=== PATIENT | female | born 1960 | race Caucasian/White ===

== ENCOUNTER 2020-04-30 10:10 | Outpatient (CLI) | payer BC, SELFPAY ==
--- NOTE | ~2020-04-30 | MM_ITS ---
EXAMINATION: MM scrn kay implant BI w bertha HISTORY: Screening mammogram TECHNIQUE: Craniocaudal and mediolateral oblique 3-D tomosynthesis images with implant displacement a nd synthetic 2-D images were generated. Craniocaudal and mediolateral oblique views of the breasts wi thout implant displacement were obtained using full field digital mammography. CAD analysis was submi tted and interpreted. COMPARISON: Comparison to multiple prior studies sequentially, with oldest reviewed study dated 10/31. BREAST PARENCHYMAL COMPOSITION: There are scattered areas of fibroglandular density. FINDINGS: There is no evidence of suspicious mass, calcification, or architectural distortion to sugg est malignancy in either breast. There has been no suspicious interval change. IMPRESSION: 1. No mammographic evidence of malignancy. 2. Recommend routine screening mammography in one year. BI-RADS Category 1: Negative Reviewed, dictated and finalized at location A.
== END 2020-04-30 10:11 | disposition home or self-care (01) ==
LOC: ANHIMG 10:18
PROVIDERS: PCP Family Medicine
DX: Z12.31 Encounter for screening mammogram for malignant neoplasm of breast (principal)
CPT/HCPCS: 77063; 77067

== ENCOUNTER 2021-08-06 16:32 | Outpatient (CLI) | payer BC, SELFPAY ==
--- NOTE | ~2021-08-06 | MM_ITS ---
EXAMINATION: MM scrn kay implant BI w bertha HISTORY: Screening mammogram TECHNIQUE: Craniocaudal and mediolateral oblique 3-D tomosynthesis images with implant displacement a nd synthetic 2-D images were generated. Craniocaudal and mediolateral oblique views of the breasts wi thout implant displacement were obtained using full field digital mammography. CAD analysis was submi tted and interpreted. COMPARISON: 04/30/2020, 10/04/2018, 06/08/2017 bilateral digital screening mammogram examinations BREAST PARENCHYMAL COMPOSITION: There are scattered areas of fibroglandular density. FINDINGS: Status post bilateral augmentation mammoplasty. There is no evidence of suspicious mass, ca lcification, or architectural distortion to suggest malignancy in either breast. There has been no peng spicious interval change. IMPRESSION: 1. No mammographic evidence of malignancy. 2. Recommend routine screening mammography in one year. BI-RADS Category 1: Negative Reviewed, dictated and finalized at location A.
== END 2021-08-06 16:33 | disposition home or self-care (01) ==
PROVIDERS: PCP Family Medicine; Visit Provider Family Medicine
DX: Z12.31 Encounter for screening mammogram for malignant neoplasm of breast (principal)
CPT/HCPCS: 77063; 77067

== ENCOUNTER 2022-08-27 15:43 | Outpatient (CLI) | payer BC, SELFPAY ==
--- NOTE | ~2022-08-27 | MM_ITS ---
EXAMINATION: MM scrn kay implant BI w bertha HISTORY: Screening mammogram TECHNIQUE: Craniocaudal and mediolateral oblique 3-D tomosynthesis images with implant displacement a nd synthetic 2-D images were generated. Craniocaudal and mediolateral oblique views of the breasts wi thout implant displacement were obtained using full field digital mammography. CAD analysis was submi tted and interpreted. COMPARISON: 08/06/2021, 04/30/2020, 10/04/2018 bilateral implant screening mammogram examinations BREAST PARENCHYMAL COMPOSITION: There are scattered areas of fibroglandular density. FINDINGS: Status post bilateral augmentation mammoplasty There is no evidence of suspicious mass, emmanuelle cification, or architectural distortion to suggest malignancy in either breast. There has been no rivera picious interval change. IMPRESSION: 1. No mammographic evidence of malignancy. 2. Recommend routine screening mammography in one year. BI-RADS Category 1: Negative Reviewed, dictated and finalized at location A.
== END 2022-08-27 15:44 | disposition home or self-care (01) ==
PROVIDERS: PCP Family Medicine; Visit Provider Family Medicine
DX: Z12.31 Encounter for screening mammogram for malignant neoplasm of breast (principal)
CPT/HCPCS: 77063; 77067

== ENCOUNTER 2023-10-01 13:47 | Outpatient (CLI) | payer BC, SELFPAY ==
--- NOTE | ~2023-10-01 | MM_ITS ---
EXAMINATION: MM scrn kay implant BI w bertha HISTORY: Screening mammogram TECHNIQUE: Craniocaudal and mediolateral oblique 3-D tomosynthesis images with implant displacement a nd synthetic 2-D images were generated. Craniocaudal and mediolateral oblique views of the breasts wi thout implant displacement were obtained using full field digital mammography. CAD analysis was submi tted and interpreted. COMPARISON: 08/27/2022, 08/06/2021, 04/30/2020 BREAST PARENCHYMAL COMPOSITION: The breasts are almost entirely fatty. FINDINGS: There is no evidence of suspicious mass, calcification, or architectural distortion to sugg est malignancy in either breast. There has been no suspicious interval change. IMPRESSION: 1. No mammographic evidence of malignancy. 2. Recommend routine screening mammography in one year. BI-RADS Category 1: Negative Reviewed, dictated and finalized at location A.
== END 2023-10-01 13:48 | disposition home or self-care (01) ==
LOC: ANHIMG 13:54
PROVIDERS: PCP Internal Medicine; Visit Provider Internal Medicine
DX: Z12.31 Encounter for screening mammogram for malignant neoplasm of breast (principal)
CPT/HCPCS: 77063; 77067

== ENCOUNTER 2025-03-02 08:13 | Outpatient (CLI) | payer MEDICARE, SELFPAY ==
--- NOTE | ~2025-03-02 | MM_ITS ---
EXAMINATION: MM screening kay BI w bertha HISTORY: Screening TECHNIQUE: Craniocaudal and mediolateral oblique 3-D tomosynthesis images were obtained and synthetic 2-D images were generated. CAD analysis was submitted and interpreted. COMPARISON: Comparison to multiple prior studies sequentially, with oldest reviewed study dated 06/08. BREAST PARENCHYMAL COMPOSITION: Not Dense: The breasts are almost entirely fatty. FINDINGS: There is no evidence of suspicious mass, calcification, or architectural distortion to sugg est malignancy in either breast. There has been no suspicious interval change. IMPRESSION: 1. No mammographic evidence of malignancy. 2. Recommend routine screening mammography in one year. BI-RADS Category 1: Negative Reviewed, dictated and finalized at location A.
--- OUTSIDE RECORDS SUMMARY | 2025-03-02 08:25 | XMS_ITS | Encounter Summary ---
Author Organization [facility] Facility Care Team Providers Care Aquatic Laborer Name Role Phone Trevon Longoria MD Primary Care Provider [phone] Ruslan Armstrong Primary Care Provider [phone] Encounter Details Date Type Department Care Team (Latest Contact Info) Description 11/05/2018 Orders Only [facility] CLINCONV ProviderNorma MD [address] [place] [id number] Social History Tobacco Use Types Packs/Day Years Used Date Smoking Tobacco: Never Assessed Comments Unknown Sex and Gender Information Value Date Recorded Sex Assigned at Not on file 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 Historical Provider Final Res ult documented in this encounter Visit Diagnoses Not on filedocumented in this encounter Care Teams Aquatic Laborer Relationship Specialty Start Date End Date Trevon Longoria MD PCP - General Family Medicine 09/21/19 09/30/22 Ruslan Armstrong PA PCP - General Family Medicine 10/01/22 documented as of this encounter
--- OUTSIDE RECORDS SUMMARY | 2025-03-02 08:25 | XMS_ITS | Encounter Summary ---
Author Organization [facility] Facility Care Team Providers Care Certified Master Locksmith Name Role Phone Trevon Longoria MD Primary Care Provider [phone] Ruslan Armstrong Primary Care Provider [phone] Encounter Details Date Type Department Care Team (Latest Contact Info) Description 07/19/2016 Orders Only [facility] CLINCONV ProviderNorma MD [address] [place] [id number] Social History Tobacco Use Types Packs/Day Years Used Date Smoking Tobacco: Never Assessed Comments Unknown Sex and Gender Information Value Date Recorded Sex Assigned at Not on file 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 Historical Provider Final Res ult documented in this encounter Visit Diagnoses Not on filedocumented in this encounter Care Teams Certified Master Locksmith Relationship Specialty Start Date End Date Trevon Longoria MD PCP - General Family Medicine 09/21/19 09/30/22 Ruslan Armstrong PA PCP - General Family Medicine 10/01/22 documented as of this encounter
--- OUTSIDE RECORDS SUMMARY | 2025-03-02 08:25 | XMS_ITS | Encounter Summary ---
Author Organization [facility] Facility Care Team Providers Care Steward/Stewardess Third Class Name Role Phone Trevon Longoria MD Primary Care Provider [phone] Ruslan Armstrong Primary Care Provider [phone] Encounter Details Date Type Department Care Team (Latest Contact Info) Description 10/24/2018 Orders Only [facility] CLINCONV ProviderNorma MD [address] [place] [id number] Social History Tobacco Use Types Packs/Day Years Used Date Smoking Tobacco: Never Assessed Comments Unknown Sex and Gender Information Value Date Recorded Sex Assigned at Not on file 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 Historical Provider [facility] Final Result documented in this encounter Visit Diagnoses Not on filedocumented in this encounter Care Teams Steward/Stewardess Third Class Relationship Specialty Start Date End Date Trevon Longoria MD PCP - General Family Medicine 09/21/19 09/30/22 Ruslan Armstrong PA PCP - General Family Medicine 10/01/22 documented as of this encounter
--- OUTSIDE RECORDS SUMMARY | 2025-03-02 08:25 | XMS_ITS | Encounter Summary ---
Author Organization 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 Historical Provider Final Res ult documented in this encounter Visit Diagnoses Not on filedocumented in this encounter Care Teams Spark Tester Relationship Specialty Start Date End Date Trevon Longoria MD PCP - General Family Medicine 09/21/19 09/30/22 Ruslan Armstrong PA PCP - General Family Medicine 10/01/22 documented as of this encounter
--- OUTSIDE RECORDS SUMMARY | 2025-03-02 08:25 | XMS_ITS | CONTINUITY OF CARE DOCUMENT ---
Author Name ned, ned Address Unknown Organization [facility] Address [address] [place] [address] Phone [phone] Care Team Providers Care Operator Cavity Pump Name Role Phone Orlando CÁRDENAS, Tawanna Unavailable OPAL JEAN-BAPTISTE MD Unavailable [phone] OPAL JEAN-BAPTISTE MD Unavailable [phone] PROBLEMS Condition Status Date Provider Notes Hypercholesterolemia, mixed completed 2007 - Tawanna Perry MD PALPITATIONS-11/10 NUC ABN I NF WALL ISCH completed - Tawanna Perry MD CAD S/P BMSX 2 IN PROX TO [place] D RCA in 2012, nl stress test 11/2022 active Tawanna Perry MD DIABETES MELLITUS active Tawanna Perry MD Obesity active Tawanna Perry MD Rash/Hives episode - non-specific with diaphoresis completed - Tawanna Perry MD Hyperlipidemia active Tawanna Perry MD SVT active Tawanna Perry MD HTN--echo ef nl, 11/2022 active Manfred gonzales CHEST PAIN-TYPE TO BE DETERMINED completed - Tawanna Perry MD ENCOUNTERS Date Type Provider Location Encounter Diag nosis - In-person encounter Office Visit Tawanna Perry MD [facility] - In-person encounter Office Visit Tawanna Perry MD [facility] Hypercholesterolemia, mixedPALPITATIONS-11/10 NUC ABN INF WALL ISCHCAD S/P BMSX 2 IN PROX TO MID RCA in 2012, nl stress test 11/2022Rash/Hives episode - non-specific with diaphoresisHyperlipidemia - In-person encounter Office Visit Tawanna Perry MD [facility] HTN--echo ef nl, 11/2022 - In-person encounter Office Visit Tawanna Perry MD [facility] CAD S/P BMSX 2 IN PROX TO MID RCA in 2012, nl stress test 11/2022SVT - In-person encounter Office Visit Tawanna Perry MD [facility] - In-person encounter Office Visit Tawanna Perry MD [facility] - In-person encounter Office Visit Tawanna Perry MD [facility] HTN--echo ef nl, 11/2022 - In-person encounter Office Visit Tawanna Perry MD [facility] - In-person encounter Office Visit Tawanna Perry MD [facility] - In-person encounter Office Visit Tawanna Perry MD [facility] - In-person encounter Office Visit Tawanna Perry MD [facility] - In-person encounter Office Visit Tawanna Perry MD [facility] - In-person encounter Office Visit Dennis Contreras MD [facility] - In-person encounter Office Visit Tawanna Perry MD [facility] - In-person encounter Office Visit Tawanna Perry MD [facility] CAD S/P BMSX 2 IN PROX TO MID RCA in 2012, nl stress test 3DIABETES MELLITUS - In-person encounter Office Visit Tawanna Perry MD [facility] - In-person encounter Office Visit Tawanna Perry MD [facility] - In-person encounter Office Visit Tawanna Perry MD [facility] Obesity - In-person encounter Office Visit Tawanna Perry MD [facility] - In-person encounter Office Visit Tawanna Perry MD [facility] CAD S/P BMSX 2 IN PROX TO MID RCA in 2012, nl stress test IABETES MELLITUS - In-person encounter Office Visit Tawanna Perry MD [facility] - In-person encounter Office Visit Tawanna Perry MD [facility] - In-person encounter Office Visit Tawanna Perry MD [facility] - In-person encounter Office Visit Tawanna Perry MD [facility] - In-person encounter Office Visit Tawanna Perry MD [place] [facility] - In-person encounter Office Visit Tawanna Perry MD [place] [facility] - In-person encounter Office Visit Tawanna Perry MD [facility] CHEST PAIN-TYPE TO BE DETERMINEDHTN--echo ef nl, AD S/P BMSX 2 IN PROX TO MID RCA in 2012, nl stress test 11/2022 - In-person encounter Office Visit Tawanna Perry MD [facility] VITAL SIGNS Date Observation Value Provider Body Mass Index (Ratio) 25.73 kg/m2 Rod Perry MD blood pressure, diastolic 82 mm[Hg] Halle Matute blood pressure, systolic 122 mm[Hg] Cristina Matute oxygen saturation, oximetry 96 % Haritha Matute respiratory rate E&M 16 /min Haritha Matute pulse rate 77 /min Haritha Matute blood pressure, cuff size regular Li zbeth Matute weight E&M 147.6 [lb_av] Haritha Matute height E&M 63.5 [in_i] Haritha Matute Body Mass Index (Ratio) 25.98 kg/m2 Rod Perry MD blood pressure, diastolic 81 mm[Hg] Halle [employer] blood pressure, systolic 112 mm[Hg] Lyudmila [employer]Logic blood pressure, cuff size regular Ja rret blood pressure, diastolic 81 mm[Hg] Ja rret blood pressure, systolic 112 mm[Hg] Jar ret pulse rate 82 /min Yonas er y oxygen saturation, oximetry 97 % Yonas respiratory rate E&M 14 /min Yonas weight E&M 149 [lb_av] Yonas er y height E&M 63.5 [in_i] Yonas er y Body Mass Index (Ratio) 25.63 kg/m2 Rod Perry MD blood pressure, cuff size regular Ja rret blood pressure, diastolic 75 mm[Hg] Ja rret blood pressure, systolic 105 mm[Hg] Jar ret pulse rate 80 /min Yonas er y oxygen saturation, oximetry 97 % respiratory rate E&M 12 /min Yonas weight E&M 147 [lb_av] Yonas erda y height E&M 63.5 [in_i] Yonas er y Body Mass Index (Ratio) 26.15 kg/m2 Rod Perry MD blood pressure, diastolic 77 mm[Hg] Mi gerda Gupta blood pressure, systolic 97 mm[Hg] Osvaldo helle Gupta oxygen saturation, oximetry 99 % Maria Eugenia Gupta pulse rate 94 /min Maria Eugenia samuels weight E&M 150 [lb_av] Maria Eugenia samuels respiratory rate E&M 16 /min Kathy selene Gupta blood pressure, cuff size large Alyson lorenz Gupta height E&M 63.5 [in_i] Maria Eugenia samuels Body Mass Index (Ratio) 26.81 kg/m2 Rod Perry MD blood pressure, diastolic 85 mm[Hg] St acy Kaleb blood pressure, systolic 130 mm[Hg] Sta ajit Manuel oxygen saturation, oximetry 98 % Lizetajit Manuel pulse rate 88 /min Lizetajit Manuel respiratory rate E&M 16 /min Lizet D karina weight E&M 153.8 [lb_av] Lizet Kaleb height E&M 63.5 [in_i] Lizet Kaleb Body Mass Index (Ratio) 29.64 kg/m2 Rod Perry MD pulse rate 71 /min Maria Eugenia samuels oxygen saturation, oximetry 95 % Maria Euegnia Gupta respiratory rate E&M 16 /min Kathy morton Gupta blood pressure, cuff size large Alyson lorenz Gupta blood pressure, diastolic 72 mm[Hg] Mi gerda Gupta blood pressure, systolic 124 mm[Hg] [facility] helle Gupta weight E&M 170 [lb_av] Maria Eugenia samuels height E&M 63.5 [in_i] Maria Eugenia samuels Body Mass Index (Ratio) 29.64 kg/m2 Rod Perry MD blood pressure, diastolic 74 mm[Hg] Li nkLogic blood pressure, systolic 125 mm[Hg] Lyudmila kLogic blood pressure, diastolic 74 mm[Hg] Ca therine Gagan blood pressure, systolic 125 mm[Hg] Cat herine Gagan oxygen saturation, oximetry 98 % Marjorie Gagan respiratory rate E&M 16 /min Catheri ne Gagan pulse rate 71 /min Marjorie Meridian weight E&M 170 [lb_av] Marjorie Meridian blood pressure, cuff size large Ca therine Gagan height E&M 63.5 [in_i] Marjorie Gagan Body Mass Index (Ratio) 28.42 kg/m2 Rod Perry MD blood pressure, diastolic 70 mm[Hg] Natalio Moss blood pressure, systolic 124 mm[Hg] Celi Moss oxygen saturation, oximetry 96 % Vasquez Moss respiratory rate E&M 16 /min Heidy Moss pulse rate 70 /min Vasquez Wells borismalu weight E&M 163 [lb_av] Vasquez Wells [facility] height E&M 63.5 [in_i] Vasquez Wells malu Body Mass Index (Ratio) 27.55 kg/m2 Rod Perry MD blood pressure, diastolic 68 mm[Hg] Ajit Lin blood pressure, systolic 111 mm[Hg] Annie justice Lin respiratory rate E&M 16 /min Angelajustice Lin pulse rate 77 /min Angela Emmanuelbel l oxygen saturation, oximetry 96 % Angela Lin weight E&M 158 [lb_av] Angela Campbel l blood pressure, cuff size regular Cy ntkaren Lin height E&M 63.5 [in_i] Angela dominguez temperature site temporal Miriam Tank slechandra temperature E&M 97.5 [degF] Miriam Suzi tom Body Mass Index (Ratio) 30.68 kg/m2 Rod Perry MD blood pressure, diastolic 78 mm[Hg] Er ica Gay blood pressure, systolic 118 mm[Hg] Nelly brewster Gay oxygen saturation, oximetry 97 % Jeanine Gay pulse rate 75 /min Jeanine Herlinda Ward weight E&M 176 [lb_av] Jeanine Herlinda Ward height E&M 63.5 [in_i] Jeaninejohn Ward Body Mass Index (Ratio) 31.21 kg/m2 Rod Perry MD oxygen saturation, oximetry 95 % [facility], diastolic 64 mm[Hg] astity Landon blood pressure, systolic 116 mm[Hg] Yin stity Landon respiratory rate E&M 16 /min Chastit y Landon pulse rate 79 /min [facility] weight E&M 179 [lb_av] [facility] height E&M 63.5 [in_i] [facility] Body Mass Index (Ratio) 30.30 kg/m2 Alexander Contreras MD blood pressure, diastolic 90 mm[Hg] Natalio Moss blood pressure, systolic 144 mm[Hg] Celi Moss oxygen saturation, oximetry 98 % Vasquez Moss respiratory rate E&M 18 /min Heidy Moss pulse rate 77 /min Vasquez love weight E&M 173.8 [lb_av] Vasquez Piotr abhishek height E&M 63.5 [in_i] Vasquez Steve ivan Body Mass Index (Ratio) 31.38 kg/m2 Rod Perry MD blood pressure, cuff size regular rFida Saleh blood pressure, diastolic 80 mm[Hg] Frida Saleh blood pressure, systolic 110 mm[Hg] Gwyn manning Delfino oxygen saturation, oximetry 97 % Karlie Delfino respiratory rate E&M 16 /min Karlie Saleh pulse rate 93 /min Karlie Saleh weight E&M 180 [lb_av] Karlie Delfino height E&M 63.5 [in_i] Karlie Saleh blood pressure, diastolic 75 mm[Hg] Fl ameya Wilson blood pressure, systolic 109 mm[Hg] Rochelle hooper Wilson pulse rate 82 /min Sandra Wilson oxygen saturation, oximetry 96 % Sandra Wilson respiratory rate E&M 14 /min Sandra Wilson Body Mass Index (Ratio) 32.08 kg/m2 Josi callahan Wilson weight E&M 184 [lb_av] Sandra Wilson blood pressure, diastolic 76 mm[Hg] Natalio Moss blood pressure, systolic 111 mm[Hg] Celi Moss pulse rate 71 /min Vasquez love oxygen saturation, oximetry 95 % Vasquez Moss respiratory rate E&M 16 /min Heidy Moss Body Mass Index (Ratio) 32.57 kg/m2 Masha Moss weight E&M 186.8 [lb_av] Vasquez weiss blood pressure, diastolic 80 mm[Hg] Natalio Moss blood pressure, systolic 125 mm[Hg] Celi Moss pulse rate 73 /min Vasquez love oxygen saturation, oximetry 98 % Vasquez Moss respiratory rate E&M 18 /min Heidy Moss Body Mass Index (Ratio) 32.74 kg/m2 Masha Moss weight E&M 187.8 [lb_av] Vasquez weiss Body Mass Index (Ratio) 32.78 kg/m2 Anea catalina Brown blood pressure, diastolic 82 mm[Hg] An eatris Brown blood pressure, systolic 123 mm[Hg] Ane atris Brown pulse rate 74 /min Aneatris Brown oxygen saturation, oximetry 96 % Aneatris Brown respiratory rate E&M 17 /min Aneatri s Brown weight E&M 188 [lb_av] Aneatris Brown Body Mass Index (Ratio) 30.51 kg/m2 Anea catalina Declan blood pressure, diastolic 69 mm[Hg] An marizaris Declan blood pressure, systolic 95 mm[Hg] Ane atris Brown pulse rate 78 /min Aneatris Brown oxygen saturation, oximetry 98 % Aneatris Brown respiratory rate E&M 16 /min Aneatri s Brown weight E&M 175 [lb_av] Aneatris Declan blood pressure, diastolic 74 mm[Hg] Yordy Andrews RN blood pressure, systolic 121 mm[Hg] Michi Andrews RN pulse rate 79 /min Michi Andrews RN oxygen saturation, oximetry 99 % Michi Andrews RN respiratory rate E&M 16 /min Michi bellamy RN Body Mass Index (Ratio) 32.02 kg/m2 Michi Andrews RN weight E&M 183 [lb_av] Michi Andrews RN blood pressure, diastolic 69 mm[Hg] Yordy Andrews RN blood pressure, systolic 108 mm[Hg] Michi Andrews RN pulse rate 92 /min Michi Chencynthia ZUÑIGA oxygen saturation, oximetry 97 % Michi Chencynthia ZUÑIGA respiratory rate E&M 16 /min Michi bellamy RN Body Mass Index (Ratio) 31.50 kg/m2 Michi Chencynthia ZUÑIGA weight E&M 180 [lb_av] Michi Chencynthia ZUÑIGA Body Mass Index (Ratio) 32.37 kg/m2 Jensen i Amor blood pressure, diastolic 78 mm[Hg] Ke rri Amor blood pressure, systolic 113 mm[Hg] Maryanne Chinchilla pulse rate 90 /min Kelly Birch er oxygen saturation, oximetry 98 % Kelly Chinchilla respiratory rate E&M 16 /min Kelly childers weight E&M 185 [lb_av] Kelly Birch er height E&M 63.5 [in_i] Kelly Birch er blood pressure, diastolic 76 mm[Hg] Yordy charles Andrews RN blood pressure, systolic 115 mm[Hg] Michi Chencynthia ZUÑIGA pulse rate 80 /min Michi Chencynthia ZUÑIGA oxygen saturation, oximetry 97 % Michi Chencynthia ZUÑIGA respiratory rate E&M 18 /min Michi bellamy RN weight E&M 182 [lb_av] Michi Chencynthia ZUÑIGA blood pressure, diastolic 93 mm[Hg] Ma bryanna O'Evelio blood pressure, systolic 117 mm[Hg] Celi Villagomez'Evelio pulse rate 82 /min Kaylyn O'Evelio oxygen saturation, oximetry 94 % Kaylyn O'Evelio respiratory rate E&M 16 /min Kaylyn O'Evelio weight E&M 179 [lb_av] Kaylyn O'Evelio Body Mass Index (Ratio) 29.06 kg/m2 Rod Perry MD height E&M 65 [in_i] Tawanna Perry MD blood pressure, diastolic 77 mm[Hg] Enrrique garcia Carter blood pressure, systolic 107 mm[Hg] Haresh rosales Carter pulse rate 97 /min Sarahi Raul oxygen saturation, oximetry 96 % Sarahi Carter respiratory rate E&M 16 /min Tawanna Perry MD weight E&M 174 [lb_av] Sarahi Carter blood pressure, diastolic 84 mm[Hg] Jacklyn Mason MA blood pressure, systolic 140 mm[Hg] Traci Mason MA pulse rate 107 /min Sue Mason MA oxygen saturation, oximetry 98 % Sue Mason MA respiratory rate E&M 16 /min Sue Mason MA weight E&M 162 [lb_av] Sue Mason MA Body Mass Index (Ratio) 27.06 kg/m2 Rod Perry MD height E&M 65 [in_i] Tawanna Perry MD blood pressure, diastolic 84 mm[Hg] Jacklyn julianna Mason MA blood pressure, systolic 148 mm[Hg] Jacklynselene Mason MA pulse rate 98 /min Sue Mason MA oxygen saturation, oximetry 98 % Sue Mason MA respiratory rate E&M 16 /min Sue Mason MA weight E&M 162 [lb_av] Sue Mason MA blood pressure, diastolic 66 mm[Hg] Natalio Moss blood pressure, systolic 122 mm[Hg] Celi Moss pulse rate 107 /min Vasquez love oxygen saturation, oximetry 98 % Vasquez Moss respiratory rate E&M 16 /min Heidy Moss weight E&M 162 [lb_av] Vasquez love RESULTS Date Observation Value Provider Reference Range Interpretation Location hematocrit, blood 43.7 % [facility] hemoglobin, blood 14.1 g/dL [facility] triglyceride, serum, fasting 173 mg/dL [facility] HDL cholesterol, serum 42 mg/dL [facility] cholesterol, serum 154 mg/dL [facility] creatinine, serum 0.45 mg/dL [facility] platelet count 279 10*3/mm3 [facility] hematocrit, blood 42.1 % [facility] triglyceride, serum, fasting 65 mg/dL [facility] HDL cholesterol, serum 54 mg/dL [facility] lipoprotein, beta, serum, point, quantitative, calculated 84 mg/dL [facility] cholesterol, serum 151 mg/dL [facility] alanine aminotransferase (SGPT), serum 30 1/L [facility] aspartate aminotransferase (SGOT), serum 17 1/L [facility] blood glucose, random 112 mg/dL [facility] creatinine, serum 0.84 mg/dL [facility] urea nitrogen, blood 20 mg/dL [facility] potassium, serum 4.6 mmol/L [facility] sodium, serum 146 mmol/L [facility] platelet count 216 10*3/mm3 [facility] hematocrit, blood 38.5 % [facility] blood glucose, random 115 mg/dL [facility] creatinine, serum 0.64 mg/dL [facility] urea nitrogen, blood 18 mg/dL [facility] potassium, serum 3.8 mmol/L [facility] sodium, serum 141 mmol/L [facility] thyroid stimulating hormone, serum 2.120 u[IU]/mL [facility] LDL cholesterol, serum 81 mg/dL [facility] cholesterol, serum 152 mg/dL [facility] potassium, serum 4.5 mmol/L [facility] sodium, serum 144 mmol/L [facility] creatinine, serum 0.98 mg/dL [facility] platelet count 288 10*3/uL [facility] hematocrit, blood 44.1 % [facility] platelet count 303 10*3/mm3 [facility] hematocrit, blood 42.8 % [facility] lipoprotein, beta, serum, point, quantitative, calculated 86 mg/dL [facility] cholesterol, serum 160 mg/dL [facility] alanine aminotransferase (SGPT), serum 30 1/L [facility] aspartate aminotransferase (SGOT), serum 30 1/L [facility] creatinine, serum 0.91 mg/dL [facility] potassium, serum 5.0 mmol/L [facility] sodium, serum 142 mmol/L [facility] triglyceride, serum, fasting 95 mg/dL [facility] HDL cholesterol, serum 60 mg/dL [facility] LDL cholesterol, serum 123 mg/dL [facility] cholesterol, serum 202 mg/dL [facility] thyroid stimulating hormone, serum 2.07 u[IU]/mL [facility] anion gap, serum 8.7 [facility] globulins, serum, total 3.5 g/dL [facility] estimated glomerular filtration rate >60 [facility] albumin/globulin ratio, serum 1.3 [facility] protein, total, serum 8.2 g/dL [facility] albumin, serum 4.7 g/dL [facility] bilirubin, serum, total 0.72 mg/dL [facility] alkaline phosphatase, serum 124 1/L [facility] alanine aminotransferase (SGPT), serum 36 1/L [facility] aspartate aminotransferase (SGOT), serum 15 1/L [facility] calcium, serum 9.7 mg/dL [facility] blood glucose, fasting 107 mg/dL [facility] creatinine, serum 0.91 mg/dL [facility] urea nitrogen, blood 18.7 mg/dL [facility] carbon dioxide, serum, total 33 mmol/L [facility] chloride, serum 99 mmol/L [facility] potassium, serum 4.7 mmol/L [facility] sodium, serum 136 mmol/L [facility] platelet count 335 10*3/uL [facility] red blood cell distribution width 12.6 % [facility] mean corpuscular hemoglobin concentration, RBC 32.5 g/dL [facility] mean corpuscular hemoglobin, RBC 29.9 pg [facility] mean corpuscular volume, RBC 92.1 fL [facility] hematocrit, blood 44.3 % [facility] hemoglobin, blood 14.4 g/dL [facility] erythrocyte (RBC) count 4.81 10*6/mm3 [facility] leukocyte count, blood 7.6 10*3/mm3 [facility] thyroid stimulating hormone, serum 1.36 u[IU]/mL [facility] Normal alanine aminotransferase (SGPT), serum 11 1/L [facility] 6-40 Normal aspartate aminotransferase (SGOT), serum 16 1/L [facility] 10-35 Normal alkaline phosphatase, serum 51 1/L [facility] 33-130 Normal bilirubin, serum, total 0.3 mg/dL [facility] 0.2-1.2 Normal albumin/globulin ratio, serum 1.4 (calc) [facility] 1.0-2.1 Normal globulins, serum, total 3.0 G/DL (CALC) [facility] 2.2-3.9 Normal albumin, serum 4.1 g/dL [facility] 3.6-5.1 Normal protein, total, serum 7.1 g/dL [facility] 6.2-8.3 Normal calcium, serum 9.0 mg/dL [facility] 8.6-10.2 Normal carbon dioxide, venous blood 21 mmol/L [facility] 21-33 Normal chloride, serum 106 mmol/L [facility] 98-110 Normal potassium, serum 4.4 mmol/L [facility] 3.5-5.3 Normal sodium, serum 140 mmol/L [facility] 135-146 Normal urea nitrogen/creatinine ratio, serum NOT APPLICABLE (calc) [facility] 6-22 Estimated Glomerular Filtration Rate (calc) >60 mL/min/1.73m2 [facility] > OR = 60 Normal creatinine, serum 0.91 mg/dL [facility] 0.60-1.10 Normal urea nitrogen, blood 17 mg/dL [facility] 7-25 Normal blood glucose, random 107 mg/dL [facility] 65-99 High prothrombin time (patient) 9.3 s [facility] international normalized ratio (INR) 0.9 [facility] creatinine, serum 1.0 mg/dL [facility] urea nitrogen, blood 11 mg/dL [facility] potassium, serum 4.0 mmol/L [facility] sodium, serum 140 mmol/L [facility] platelet count 385 10*3/uL [facility] hematocrit, blood 36.3 % [facility] hemoglobin, blood 11.9 g/dL [facility] erythrocyte (RBC) count 4.32 10*6/mm3 Masha Peterson leukocyte count, blood 8.5 10*3/mm3 Masha Peterson RN prothrombin time (patient) 9.3 s [facility] international normalized ratio (INR) 0.9 [facility] creatinine, serum 1.0 mg/dL [facility] urea nitrogen, blood 11 mg/dL [facility] potassium, serum 4.0 mmol/L [facility] sodium, serum 140 mmol/L [facility] platelet count 385 10*3/uL [facility] hematocrit, blood 36.3 % [facility] hemoglobin, blood 11.9 g/dL [facility] erythrocyte (RBC) count 4.32 10*6/mm3 [facility] leukocyte count, blood 8.5 10*3/mm3 [facility] HISTORY OF MEDICATION USE Medication Status Instructions Dates Provider Indications Com ments Ozempic 2 mg/dose (8 mg/3 mL) pen injector active Tawanna Perry MD Mounjacassy 5 mg/0.5 mL pen injector completed - Tawanna Perry MD metoprolol succinate 100 mg tablet extended release 24 hr active TAKE 1 TABLET BY MOUTH EVERY DAY Minnie Gunter rosuvastatin 20 mg tablet active Take 1 tablet by mouth once a day TAKE 1 TABLET BY MOUTH EVERY DAY Allyson Barry Jardiance 10 mg tablet active TAKE 1 TABLET BY MOUTH EVERY DAY Kelly Chinchilla rosuvastatin 20 mg tablet completed TAKE 1 TABLET BY MOUTH EVERY DAY - Roger Cifuentes Nitrostat 0.4 mg tablet, sublingual active apply one tab under tongue every 5 minutes for 3 total doses as needed for chest pain. If no relief after 3rd dose, go to ER Dylan Hall Jardiance 10 mg tablet completed One tab by mouth daily. - Manfred Tao Xanax 0.25 mg tablet active 1 tablet by mouth once a day as needed Vasquez Moss omeprazole 40 mg capsule,delayed release(DR/EC) active once a day Vasquez Moss aspirin 325 mg tablet active 1 tablet by mouth once a day Vasquez Moss YOSPRALA 325-40 MG ORAL TABLET DELAYED RELEASE completed po daily - Vasquez Moss rosuvastatin 20 mg tablet completed take one tab daily - Bailey Kvng ISOSORBIDE MONONIT ER 30 MG TB completed TAKE 1 TABLET BY MOUTH EVERY DAY - Ramirezelian Rafael metformin 500 mg tablet active 1 tablet by mouth twice a day Maria Eugenia Gupta SIMVASTATIN 20 MG ORAL TABLET completed ONE TAB. DAILY - Tawanna Perry MD NAPROXEN SODIUM CAPSULE completed as needed - VasquezLissette Moss CONTRAVE 8-90 MG ORAL TABLET EXTENDED RELEASE 12 HOUR completed 2 po bid - Vasquez Moss ASPIRIN 325 MG ORAL TABLET completed ONE TAB. DAILY - Tawanna Perry MD PLAVIX 75 MG ORAL TABLET completed ONE TAB. DAILY - Judi Manriquez SIMCOR 500-20 MG ORAL TABLET EXTENDED RELEASE 24 HOUR completed ONE TAB. DAILY - Dispense as written - Tawanna Perry MD losartan 25 mg tablet active Take 1 tablet by mouth once a day Manfred Tao PRILOSEC 20 MG ORAL CAPSULE DELAYED RELEASE completed ONE TAB. DAILY (use OTC) - Tawanna Perry MD LISINOPRIL 10 MG ORAL TABLET completed 1 tablet by mouth daily - Tawanna Perry MD metoprolol succinate 100 mg tablet extended release 24 hr completed Take 1 tablet by mouth once a day - Minnie Gunter IMDUR 30 MG ORAL TABLET EXTENDED RELEASE 24 HOUR completed ONE TAB. DAILY - Tawanna Perry MD ASPIRIN 325 MG ORAL TABLET completed one tab daily - Tawanna Perry MD ZOCOR 20 MG ORAL TABLET completed ONE TAB. AT BEDTIME - Masha Peterson RN CONTROL completed daily - Grayson Null MULTIVITAMINS ORAL CAPSULE completed ONE TAB. DAILY - Vasquez Moss ASPIRIN 81 MG ORAL TABLET completed ONE TAB. DAILY - Masha Peterson RN PRILOSEC OTC 20 MG ORAL TABLET DELAYED RELEASE completed take one tablet daily as directed - Masha Peterson RN ACEON TABS completed 20 mg daily - Grayson Null SOCIAL HISTORY Date Observation Value Provider drug use no Haritha Matute alcohol use no Haritha Matute passive cigarette sm luna exposure yes Haritha Matute smoking status Former smoker Haritha Matute social history reviewed E&M revi ewed - no changes required Manfred Tao social history E&M Lives alone E thnicity: M arital Status: Single Smoking History: P atient is a former smoker. Manfred Tao physical exercise, f requency, days per week yes Maria Eugenia Gupta caffeine use, averag e drinks per day yes Maria Eugenia Gupta passive cigarette sm luna exposure yes Maria Eugenia Gupta smoking status Former smoker Maria Eugenia grande social history reviewed E&M revi ewed - no changes required Manfred Tao social history E&M Lives alone E thnicity: M arital Status: Single Smoking History: P atient is a former smoker. Manfred Tao physical exercise, f requency, days per week yes Lizet Manuel caffeine use, averag e drinks per day yes Lizet Manuel passive cigarette sm luna exposure yes Lizet Manuel smoking status Former smoker Lizet Manuel social history reviewed E&M revi ewed - no changes required Manfred Ramoszaberny physical exercise, f requency, days per week yes Maria Eugenia Gupta caffeine use, averag e drinks per day yes Maria Eugenia Gupta passive cigarette sm luna exposure yes Maria Eugenia Gupta smoking status Former smoker Maria Eugenia grande social history reviewed E&M revi ewed - no changes required Manfred Ahmedzai physical exercise, f requency, days per week yes Marjorie Gagan caffeine use, averag e drinks per day yes Marjorie Gagan passive cigarette sm luna exposure yes Marjorie Gagan smoking status Former smoker Marjorie Ot is social history reviewed E&M revi ewed - no changes required Manfred Tao alcohol use no Tawanna Perry MD social history E&M Lives alone E thnicity: M arital Status: Single Smoking History: P atlos is a former smoker. Tawanna Perry MD social history reviewed E&M revi ewed - no changes required Tawanna Perry MD physical exercise, f requency, days per week yes Vasquez Moss caffeine use, averag e drinks per day yes Vasquez Moss passive cigarette sm luna exposure yes Vasquez Moss smoking status Former smoker Vasquez Arias social history reviewed E&M revi ewed - no changes required Tawanna Perry MD social history E&M Lives alone E thnicity: M arital Status: Single Smoking History: P atient is a former smoker. Dylan Hall social history reviewed E&M revi ewed - no changes required Dylan Hall physical exercise, f requency, days per week yes Angela Lin caffeine use, averag e drinks per day yes Angela Riley passive cigarette sm luna exposure yes Angela Riley smoking status Former smoker Angela Benitez cruz social history E&M Lives alone E thnicity: M arital Status: Single Smoking History: Won mehta is a former smoker. Tawanna Perry MD physical exercise, f requency, days per week yes Jeanine Green-Ed alcohol use, average drinks per day social basis only Jeanine Green-Ed alcohol use no Jeanine Green- Ed caffeine use, averag e drinks per day yes Jeanine Green-Ed drug use no Jeanine Green- Ed passive cigarette sm luna exposure yes Jeanine Green-Ed smoking status Former smoker Jeanine Wu on-Ed social history reviewed E&M revi ewed - no changes required Jeanine Green-Ed number of grandchildren Tawanna Perry MD T dayan Perry MD social history E&M Lives alone E thnicity: M arital Status: Single Smoking History: Won mehta is a former smoker. Tawanna Perry MD social history reviewed E&M revi ewed - no changes required Tawanna Perry MD physical exercise, f requency, days per week yes Genevieve Landon alcohol use, average drinks per day social basis only Chastity Landon alcohol use no Chastity Landon caffeine use, averag e drinks per day yes Chastity Landon drug use no Chastity Landon passive cigarette sm luna exposure yes Chastity Landon smoking status Former smoker Chastity Hog ue number of grandchildren Dennis Contreras MD U john Contreras MD social history reviewed E&M revi ewed - no changes required Dennis Contreras MD physical exercise, f requency, days per week yes Vasquez Moss alcohol use, average drinks per day social basis only Vasquez Moss alcohol use no Vasquez Wells borismalu caffeine use, averag e drinks per day yes Vasquez Moss drug use no Vasquez Wells ivan passive cigarette sm luna exposure yes Vasquez Moss smoking status Former smoker Vasquez Arias social history reviewed E&M revi ewed - no changes required Tawanna Perry MD physical exercise, f requency, days per week yes Karlie Saleh alcohol use, average drinks per day social basis only Karlie Saleh alcohol use no Karlie Saleh caffeine use, averag e drinks per day yes Karlie Saleh drug use no Karlie Saleh passive cigarette sm luna exposure yes Karlie Delfino smoking status Former smoker Karlie Saleh social history reviewed E&M revi ewed - no changes required Sandra Katie physical exercise, f requency, days per week yes Sandra Katie alcohol use, average drinks per day social basis only Sandar Katie alcohol use no Sandra Katie caffeine use, averag e drinks per day yes Sandra Katie drug use no Sandra Wilson passive cigarette sm luna exposure yes Sandra Katie smoking status Former smoker Sandra Barry solitario social history reviewed E&M revi ewed - no changes required Tawanna Perry MD physical exercise, f requency, days per week yes Vasquez Moss alcohol use, average drinks per day social basis only Vasquez Moss alcohol use no Vasquez Wells ivan caffeine use, averag e drinks per day yes Vasquezmelvin Moss drug use no Vasquez Wells ivan passive cigarette sm luna exposure yes Vasquez Moss smoking status Former smoker Vasquez Arias social history reviewed E&M revi ewed - no changes required Tawanna Perry MD physical exercise, f requency, days per week yes Vasquez Moss alcohol use, average drinks per day social basis only Vasquez Moss alcohol use no Vasquez Wells borismalu caffeine use, averag e drinks per day yes Vasquez Moss drug use no Vasquez Wells nson passive cigarette sm luna exposure yes Vasquez Moss smoking status Former smoker Vasquez Arias social history reviewed E&M revi ewed - no changes required Judi Manriquez smoking status Former smoker Judi gao social history reviewed E&M i ewed - no changes required Tawanna Perry MD smoking/tobacco cess ation, patient education and counseling yes Morelia Gupta smoking status Former smoker Morelia Gupta social history reviewed E&M reviewed Michi Andrews RN drug use no Michi Andrews RN social history reviewed E&M reviewed Michi Andrews RN social history reviewed E&M reviewed Tawanna Perry MD drug use none Tawanna Perry MD passive cigarette sm luna exposure yes Kelly Chinchilla smoking history, tot al pack/year 8 Kelly Chinchilla smoking status never smoker Kelly banegas social history reviewed E&M reviewed Michi Andrews RN social history reviewed E&M reviewed Michi Andrews RN social history reviewed E&M reviewed Tawanna Perry MD social history E&M L lamine alone E thnicity: M arital Status: Single Sue Mason MA social history reviewed E&M reviewed Sue Mason MA social history E&M Marital Status: Single Tawanna Perry MD social history reviewed E&M reviewed Tawanna Perry MD drug use none Tawanna Perry MD social history reviewed E&M reviewed Tawanna Perry MD physical exercise, f requency, days per week yes [employer] caffeine use, averag e drinks per day yes [employer] alcohol use, average drinks per day social basis only [employer] smoking status Non-smoker [employer] FUNCTIONAL STATUS Date Observation Value Provider HRA, CV Assess/Plan, Angina (inactive) Management Plan continue current therapy Tawanna Perry MD HRA, CV Assess/Plan, Angina (inactive) Management Plan continue current therapy Manfred Ahmedzaberny HRA, CV Assess/Plan, Angina (inactive) Management Plan continue current therapy Manfred Ahmedzaberny HRA, CV Assess/Plan, Angina (inactive) Management Plan continue current therapy Manfred Ahmedzai HRA, CV Assess/Plan, Angina (inactive) Management Plan continue current therapy Manfred Ahmedzai HRA, CV Assess/Plan, Angina (inactive) Management Plan continue current therapy Manfred Ahmedzai HRA, CV Assess/Plan, Angina (inactive) Management Plan continue current therapy Tawanna Perry MD HRA, CV Assess/Plan, Angina (inactive) Management Plan continue current therapy Dylan Hall HRA, CV Assess/Plan, Angina (inactive) Management Plan continue current therapy Tawanna Perry MD HRA, CV Assess/Plan, Angina (inactive) Management Plan continue current therapy Dennis Contreras MD HRA, CV Assess/Plan, Angina (inactive) Management Plan continue current therapy Tawanna Perry MD HRA, CV Assess/Plan, Angina (inactive) Management Plan continue current therapy Tawanna Perry MD HRA, CV Assess/Plan, Angina (inactive) Management Plan continue current therapy Tawanna Perry MD MENTAL STATUS Date Observation Value Provider assessment of judgme nt and insight E&M Alert and oriented to time, place and person. Mood and affect are normal. Tawanna Perry MD assessment of judgme nt and insight E&M Alert and oriented to time, place and person. Mood and affect are normal. Michi Andrews RN assessment of judgme nt and insight E&M Alert and oriented to time, place and person. Mood and affect are normal. Tawanna Perry MD assessment of judgme nt and insight E&M Alert and oriented to time, place and person. Mood and affect are normal. Michi Andrews RN assessment of judgme nt and insight E&M Alert and oriented to time, place and person. Mood and affect are normal. Michi Andrews RN assessment of judgme nt and insight E&M Alert and oriented to time, place and person. Mood and affect are normal. Tawanna Perry MD assessment of judgme nt and insight E&M Alert and oriented to time, place and person. Mood and affect are normal. Sue Mason MA assessment of judgme nt and insight E&M Alert and oriented to time, place and person. Mood and affect are normal. Tawanna Perry MD assessment of judgme nt and insight E&M Alert and oriented to time, place and person. Mood and affect are normal. Tawanna Perry MD FAMILY HISTORY Family Member Condition Father Family History of Corina ng Cancer: Mother Family History of Co ronary Artery Disease: INSURANCE PROVIDERS Payer name Policy type / Coverage type Camryn red democrat ID A[employer] [facility] ADVANTAGE PLAN 2 (HMO-POS) Medicare [id number] ADVANCE DIRECTIVES Name Date DISCUSSED - NO DECISION MADE TREATMENT PLAN Date Name Performer [id number],Manfred Pierre i [id number],SManfred i [id number],SManfred i [id number],SManfred i [id number],S, Manfred Ahmedza i [id number],S, Manfred Ahmedza i [id number],S, Manfred Ahmedza i [id number],S, Manfred Ahmedza i [id number],S, Manfred Ahmedza i [id number],S, Manfred Ahmedza i [id number],S, Manfred Ahmedza i [id number],S, Manfred Ahmedza i [id number],S, Manfred Ahmedza i [id number],S, Manfred Ahmedza i [id number],S, Manfred Ahmedza i [id number],S, Manfred Ahmedza i [id number],S, Manfred Ahmedza i [id number],S, Manfred Ahmedza i [id number],S, Manfred Ahmedza i [id number],B, Manfred Ahmedza i [id number],S, Manfred Ahmedza i [id number],S, Manfred Ahmedza i [id number],S, Manfred Ahmedza i [id number],S, Tawanna Perry MD [id number],S, Tawanna Perry MD [id number],S, Tawanna Perry MD [id number],S, Tawanna Perry MD [id number],S, Tawanna Perry MD Cardiology:LDL 37 2023 H er updated medication list for this problem includes: Rosuvastatin 20 Mg Tablet (Rosuvastatin) ..... Take 1 tablet by mouth once a day take 1 tablet by mouth every day Tawanna Perry MD Cardiology Tawanna Perry MD Cardiology Tawanna Perry MD Cardiology:Aic 5.9 Tawanna Perry MD Cardiology:This visi t has been a part of the consistent, comprehensive, and ongoing management of the chronic medical condition(s) listed above for the patient. Her updated medication list for this problem includes: Metoprolol Succinate 100 Mg Tablet Extended Release 24 Hr (Metoprolol succinate) ..... Take 1 tablet by mouth every day Nitrostat 0.4 Mg Tablet, Sublingual (Nitroglycerin) ..... Apply one tab under tongue every 5 minutes for 3 total doses as needed for chest pain. if no relief after 3rd dose, go to er Aspirin 325 Mg Tablet (Aspirin) ..... 1 tablet by mouth once a day Tawanna Perry MD Cardiology Tawanna Perry MD Cardiology: H er updated medication list for this problem includes: Metoprolol Succinate 100 Mg Tablet Extended Release 24 Hr (Metoprolol succinate) ..... Take 1 tablet by mouth every day Nitrostat 0.4 Mg Tablet, Sublingual (Nitroglycerin) ..... Apply one tab under tongue every 5 minutes for 3 total doses as needed for chest pain. if no relief after 3rd dose, go to er Aspirin 325 Mg Tablet (Aspirin) ..... 1 tablet by mouth once a day Tawanna Perry MD Cardiology: H er updated medication list for this problem includes: Metoprolol Succinate 100 Mg Tablet Extended Release 24 Hr (Metoprolol succinate) ..... Take 1 tablet by mouth every day Losartan 25 Mg Tablet (Losartan) ..... Take 1 tablet by mouth once a day Aspirin 325 Mg Tablet (Aspirin) ..... 1 tablet by mouth once a day Tawanna Perry MD Cardiology: H er updated medication list for this problem includes: Mounjaro 5 Mg/0.5 Ml Pen Injector (Tirzepatide) Jardiance 10 Mg Tablet (Empagliflozin) ..... Take 1 tablet by mouth every day Losartan 25 Mg Tablet (Losartan) ..... Take 1 tablet by mouth once a day Metformin 500 Mg Tablet (Metformin) ..... 1 tablet by mouth twice a day Aspirin 325 Mg Tablet (Aspirin) ..... 1 tablet by mouth once a day Tawanna Perry MD Cardiology: H er updated medication list for this problem includes: Metoprolol Succinate 100 Mg Tablet Extended Release 24 Hr (Metoprolol succinate) ..... Take 1 tablet by mouth every day Nitrostat 0.4 Mg Tablet, Sublingual (Nitroglycerin) ..... Apply one tab under tongue every 5 minutes for 3 total doses as needed for chest pain. if no relief after 3rd dose, go to er Aspirin 325 Mg Tablet (Aspirin) ..... 1 tablet by mouth once a day Nuclear Stress Findings: 1. Normal Liam protocol exercise tolerance test. 2 . Normal left ventricular size and function with a calculated ejection fraction of (QGS) 67%. 3 . Abnormal myocardial scintigraphy is suggestive for medium size area of slight distal inferior wall ischemia. 4 . Significant breast attenuation artifact reduces the accuracy of the result. - GC (11/09/2013) C ardiac Cath: Moderate CAD involving the RCA. Mild CAD involving the left system. Normal LV systolic function. (10/12/2008) C ardiac Cath Comments: The patient needs aggressive risk factor modification and Nitrates for her spasm. (10/12/2008) C arotid Doppler/Duplex: LESS THAN 50 % STENOSIS OF THE INTERNAL CAROTID A RTERIES BILATERALLY. SLHV (11/02/2008) C HOL: 154 (03/26/2017) LDL: 84 (07/14/2014) HDL: 42 (03/26/2017) T (03/26/2017) H gb: 14.1 (03/26/2017) HCT: 43.7 (03/26/2017) Platelets: 279 (07/14/2014) R BC: 4.81 (11/17/2011) WBC: 7.6 (11/17/2011) B UN: 20 (07/14/2014) Creat: .45 (03/26/2017) Glucose: 112 (07/14/2014) N a+: 146 (07/14/2014) K+: 4.6 (07/14/2014) Cl: 99 (11/17/2011) PT: 9.3 (10/11/2008) INR: 0.9 (10/11/2008) T SH: 2.120 (11/04/2013) Tawnana Perry MD Cardiology Manfred Ahmedzai Cardiology Manfred Ahmedzai Cardiology Manfred Ahmedzai Cardiology Manfred Ahmedzai Cardiology Manfred Ahmedzai Cardiology Manfred Ahmedzai Cardiology Manfred Ahmedzai Cardiology Manfred Ahmedzai Cardiology Manfred Ahmedzai Cardiology Manfred Ahmedzai Cardiology Manfred Ahmedzai Cardiology Manfred Ahmedzai Cardiology Manfred Ahmedzai Cardiology Manfred Ahmedzai Cardiology Manfred Ahmedzai Cardiology Manfred Ahmedzai Cardiology Manfred Ahmedzai Cardiology Manfred Ahmedzai Cardiology Manfred Ahmedzai Cardiology Manfred Ahmedzai Cardiology Manfred Ahmedzai Cardiology Manfred Ahmedzai Cardiology Manfred Ahmedzai Cardiology Tawanna Perry MD Cardiology Tawanna Perry MD Cardiology Tawanna Perry MD Cardiology Tawanna Perry MD Cardiology Tawanna Perry MD TeleHealth f/up May 27 at 9 am in GC office Tawanna Perry MD TeleHealth f/up May 27 at 9 am in GC office Tawanna Perry MD TeleHealth f/up May 27 at 9 am in GC office Tawanna Perry MD TeleHealth f/up May 27 at 9 am in GC office Tawanna Perry MD Cardiology Tawanna Perry MD Cardiology Tawanna Perry MD Cardiology Tawanna Perry MD Cardiology Tawanna Perry MD Cardiology Tawanna Perry MD Cardiology Tawanna Perry MD Cardiology Tawanna Perry MD Cardiology Tawanna Perry MD Cardiology Tawanna Perry MD Cardiology Tawanna Perry MD Cardiology Tawanna Perry MD Cardiology Tawanna Perry MD Cardiology Tawanna Perry MD Cardiology Tawanna Perry MD Cardiology:No chest pains. S table. Dennis Contreras MD Cardiology:She belie ves her BP being high is unusual and will track. B P today: 144/90 P rior BP: 110/80 (03/29/2017) Labs Reviewed: C reat: .45 (03/26/2017) C hol: 154 (03/26/2017) HDL: 42 (03/26/2017) T (03/26/2017) Dennis Contreras MD Cardiology:No palpitations per p atient. Dennis Contreras MD Cardiology:Well controlled per p atient. Last A1c 6.7%. Dennis Contreras MD Cardiology Follow up Tawanna lu MD Cardiology Follow up Tawanna ul MD Cardiology Follow up Tawanna lu MD Cardiology Follow up Tawanna lu MD Cardiology Tawanna Perry MD Cardiology Tawanna Perry MD Cardiology Tawanna Perry MD Cardiology Tawanna Perry MD Cardiology Tawanna Perry MD Cardiology Tawanna Perry MD Cardiology Tawanna Perry MD Cardiology Tawanna Perry MD Cardiology Tawanna Perry MD Cardiology Tawanna Perry MD Cardiology Tawanna Perry MD Cardiology Tawanna Perry MD Cardiology Tawanna Perry MD follow up: H er updated medication list for this problem includes: Simcor 500-20 Mg Tb24 (Niacin-simvastatin) ..... One tab. daily - dispense as written Tawanna Perry MD follow up: H er updated medication list for this problem includes: Aspirin 325 Mg Tabs (Aspirin) ..... One tab. daily Losartan Potassium 50 Mg Tabs (Losartan potassium) ..... Po daily Tawanna Perry MD follow up: T he following medications were removed from the medication list: Plavix 75 Mg Tabs (Clopidogrel bisulfate) ..... One tab. daily Her updated medication list for this problem includes: Aspirin 325 Mg Tabs (Aspirin) ..... One tab. daily Imdur 30 Mg Tb24 (Isosorbide mononitrate) ..... One tab. daily Metoprolol Succinate 100 Mg [id number] (Metoprolol succinate) ..... One a day instead of tartrate Simcor 500-20 Mg Tb24 (Niacin-simvastatin) ..... One tab. daily - dispense as written Tawanna Perry MD follow up: H er updated medication list for this problem includes: Aspirin 325 Mg Tabs (Aspirin) ..... One tab. daily Metoprolol Succinate 100 Mg [id number] (Metoprolol succinate) ..... One a day instead of tartrate Losartan Potassium 50 Mg Tabs (Losartan potassium) ..... Po daily Tawanna Perry MD follow up: T he following medications were removed from the medication list: Plavix 75 Mg Tabs (Clopidogrel bisulfate) ..... One tab. daily Her updated medication list for this problem includes: Aspirin 325 Mg Tabs (Aspirin) ..... One tab. daily Imdur 30 Mg Tb24 (Isosorbide mononitrate) ..... One tab. daily Metoprolol Succinate 100 Mg [id number] (Metoprolol succinate) ..... One a day instead of tartrate Tawanna Perry MD follow up: H er updated medication list for this problem includes: Metoprolol Succinate 100 Mg [id number] (Metoprolol succinate) ..... One a day instead of tartrate Losartan Potassium 50 Mg Tabs (Losartan potassium) ..... Po daily BP today: 95/69 P rior BP: 121/74 (01/01/2014) Labs Reviewed: C reat: 0.64 (11/17/2013) C hol: 152 (11/04/2013) HDL: 60 (11/17/2011) LDL: 81 (11/04/2013) T (11/17/2011) Tawanna Perry MD cath f/u high level visit : T he following medications were removed from the medication list: Aspirin 325 Mg Tabs (Aspirin) ..... One tab daily Her updated medication list for this problem includes: Losartan Potassium 50 Mg Tabs (Losartan potassium) ..... Po daily Tawanna Perry MD cath f/u high level visit : T he following medications were removed from the medication list: Aspirin 325 Mg Tabs (Aspirin) ..... One tab daily Her updated medication list for this problem includes: Metoprolol Succinate 100 Mg [id number] (Metoprolol succinate) ..... One a day instead of tartrate Losartan Potassium 50 Mg Tabs (Losartan potassium) ..... Po daily BP today: 121/74 P rior BP: 108/69 (11/06/2013) Labs Reviewed: C reat: 0.64 (11/17/2013) C hol: 152 (11/04/2013) HDL: 60 (11/17/2011) LDL: 81 (11/04/2013) T (11/17/2011) Tawanna Perry MD cath f/u high level visit : H er updated medication list for this problem includes: Simcor 500-20 Mg Tb24 (Niacin-simvastatin) ..... One tab. daily - dispense as written BP today: 121/74 Prior BP: 108/69 (11/06/2013) C HOL: 152 (11/04/2013) LDL: 81 (11/04/2013) HDL: 60 (11/17/2011) T (11/17/2011) Tawanna Perry MD cath f/u high level visit : T he following medications were removed from the medication list: Aspirin 325 Mg Tabs (Aspirin) ..... One tab daily Her updated medication list for this problem includes: Imdur 30 Mg Tb24 (Isosorbide mononitrate) ..... One tab. daily Metoprolol Succinate 100 Mg [id number] (Metoprolol succinate) ..... One a day instead of tartrate Plavix 75 Mg Tabs (Clopidogrel bisulfate) ..... One tab. daily Tawanna Perry MD cath f/u high level visit : T he following medications were removed from the medication list: Aspirin 325 Mg Tabs (Aspirin) ..... One tab daily Her updated medication list for this problem includes: Imdur 30 Mg Tb24 (Isosorbide mononitrate) ..... One tab. daily Metoprolol Succinate 100 Mg [id number] (Metoprolol succinate) ..... One a day instead of tartrate Simcor 500-20 Mg Tb24 (Niacin-simvastatin) ..... One tab. daily - dispense as written Plavix 75 Mg Tabs (Clopidogrel bisulfate) ..... One tab. daily Tawanna Perry MD : H er updated medication list for this problem includes: Metoprolol Succinate 100 Mg [id number] (Metoprolol succinate) ..... One a day instead of tartrate Aspirin 325 Mg Tabs (Aspirin) ..... One tab daily Losartan Potassium 50 Mg Tabs (Losartan potassium) ..... Po daily BP today: 108/69 P rior BP: 113/78 (10/25/2012) Labs Reviewed: C reat: 0.91 (10/26/2012) C hol: 160 (10/26/2012) HDL: 60 (11/17/2011) LDL: 86 (10/26/2012) T (11/17/2011) Orders: E KG ([id number]) Tawanna Perry MD : H er updated medication list for this problem includes: Simcor 500-20 Mg Tb24 (Niacin-simvastatin) ..... One tab. daily - dispense as written BP today: 108/69 Prior BP: 113/78 (10/25/2012) C HOL: 160 (10/26/2012) LDL: 86 (10/26/2012) HDL: 60 (11/17/2011) T (11/17/2011) Tawanna Perry MD : H er updated medication list for this problem includes: Imdur 30 Mg Tb24 (Isosorbide mononitrate) ..... One tab. daily Metoprolol Succinate 100 Mg [id number] (Metoprolol succinate) ..... One a day instead of tartrate Aspirin 325 Mg Tabs (Aspirin) ..... One tab daily BP today: 108/69 Prior BP: 113/78 (10/25/2012) H gb: 14.4 (11/17/2011) HCT: 42.8 (10/26/2012) Platelets: 303 (10/26/2012) R BC: 4.81 (11/17/2011) WBC: 7.6 (11/17/2011) B UN: 18.7 (11/17/2011) Creat: 0.91 (10/26/2012) Glucose: 107 (11/17/2011) N a+: 142 (10/26/2012) K+: 5.0 (10/26/2012) Cl: 99 (11/17/2011) Anion Gap: 8.7 (11/17/2011) Calcium: 9.7 (11/17/2011) TSH: 2.07 (11/17/2011) Holter Monitor Comments: Sinus rhythm with sinus tachycardia 68-154bpm. N o VE beats. R are isolated junctional beats. (04/04/2007) N uclear Stress Findings: EF -60%. N o EKG changes diagnostic for ischemia. G ood exercise tolerance. N ormal myocardial perfusion without infarct or ischemia. (03/01/2007) C ardiac Cath: Moderate CAD involving the RCA. Mild CAD involving the left system. Normal LV systolic function. (10/12/2008) C ardiac Cath Comments: The patient needs aggressive risk factor modification and Nitrates for her spasm. (10/12/2008) Tawanna Perry MD : H er updated medication list for this problem includes: Imdur 30 Mg Tb24 (Isosorbide mononitrate) ..... One tab. daily Metoprolol Succinate 100 Mg [id number] (Metoprolol succinate) ..... One a day instead of tartrate Aspirin 325 Mg Tabs (Aspirin) ..... One tab daily Simcor 500-20 Mg Tb24 (Niacin-simvastatin) ..... One tab. daily - dispense as written BP today: 108/69 Prior BP: 113/78 (10/25/2012) N uclear Stress Findings: EF -60%. N o EKG changes diagnostic for ischemia. G ood exercise tolerance. N ormal myocardial perfusion without infarct or ischemia. (03/01/2007) C ardiac Cath: Moderate CAD involving the RCA. Mild CAD involving the left system. Normal LV systolic function. (10/12/2008) C ardiac Cath Comments: The patient needs aggressive risk factor modification and Nitrates for her spasm. (10/12/2008) C arotid Doppler/Duplex: LESS THAN 50 % STENOSIS OF THE INTERNAL CAROTID A RTERIES BILATERALLY. [facility] (11/02/2008) C HOL: 160 (10/26/2012) LDL: 86 (10/26/2012) HDL: 60 (11/17/2011) T (11/17/2011) H gb: 14.4 (11/17/2011) HCT: 42.8 (10/26/2012) Platelets: 303 (10/26/2012) R BC: 4.81 (11/17/2011) WBC: 7.6 (11/17/2011) B UN: 18.7 (11/17/2011) Creat: 0.91 (10/26/2012) Glucose: 107 (11/17/2011) N a+: 142 (10/26/2012) K+: 5.0 (10/26/2012) Cl: 99 (11/17/2011) PT: 9.3 (10/11/2008) INR: 0.9 (10/11/2008) T SH: 2.07 (11/17/2011) Tawanna Perry MD follow up: T he following medications were removed from the medication list: Lisinopril 10 Mg Tabs (Lisinopril) ..... 1 tablet by mouth daily Her updated medication list for this problem includes: Metoprolol Succinate 100 Mg [id number] (Metoprolol succinate) ..... Po daily Aspirin 325 Mg Tabs (Aspirin) ..... One tab daily Losartan Potassium 50 Mg Tabs (Losartan potassium) ..... Po daily Orders: E KG (CPT-37224) BP today: 113/78 P rior BP: 115/76 (11/09/2011) Labs Reviewed: C reat: 0.91 (11/17/2011) C hol: 202 (11/17/2011) HDL: 60 (11/17/2011) LDL: 123 (11/17/2011) T (11/17/2011) Tawanna Perry MD follow up: H er updated medication list for this problem includes: Zocor 20 Mg Tabs (Simvastatin) ..... One tab. at bedtime Niaspan 500 Mg Tbcr (Niacin (antihyperlipidemic)) ..... One tab at bedtime - dispense as written BP today: 113/78 Prior BP: 115/76 (11/09/2011) C HOL: 202 (11/17/2011) LDL: 123 (11/17/2011) HDL: 60 (11/17/2011) T (11/17/2011) Tawanna Perry MD follow up: T he following medications were removed from the medication list: Lisinopril 10 Mg Tabs (Lisinopril) ..... 1 tablet by mouth daily Her updated medication list for this problem includes: Imdur 30 Mg Tb24 (Isosorbide mononitrate) ..... One tab. daily Metoprolol Succinate 100 Mg [id number] (Metoprolol succinate) ..... Po daily Aspirin 325 Mg Tabs (Aspirin) ..... One tab daily BP today: 113/78 Prior BP: 115/76 (11/09/2011) H gb: 14.4 (11/17/2011) HCT: 44.3 (11/17/2011) RBC: 4.81 (11/17/2011) WBC: 7.6 (11/17/2011) B UN: 18.7 (11/17/2011) Creat: 0.91 (11/17/2011) Glucose: 107 (11/17/2011) N a+: 136 (11/17/2011) K+: 4.7 (11/17/2011) Cl: 99 (11/17/2011) Anion Gap: 8.7 (11/17/2011) Calcium: 9.7 (11/17/2011) TSH: 2.07 (11/17/2011) Holter Monitor Comments: Sinus rhythm with sinus tachycardia 68-154bpm. N o VE beats. R are isolated junctional beats. (04/04/2007) N uclear Stress Findings: EF -60%. N o EKG changes diagnostic for ischemia. G ood exercise tolerance. N ormal myocardial perfusion without infarct or ischemia. (03/01/2007) C ardiac Cath: Moderate CAD involving the RCA. Mild CAD involving the left system. Normal LV systolic function. (10/12/2008) C ardiac Cath Comments: The patient needs aggressive risk factor modification and Nitrates for her spasm. (10/12/2008) Tawanna Perry MD follow up: T he following medications were removed from the medication list: Lisinopril 10 Mg Tabs (Lisinopril) ..... 1 tablet by mouth daily Her updated medication list for this problem includes: Zocor 20 Mg Tabs (Simvastatin) ..... One tab. at bedtime Imdur 30 Mg Tb24 (Isosorbide mononitrate) ..... One tab. daily Metoprolol Succinate 100 Mg [id number] (Metoprolol succinate) ..... Po daily Aspirin 325 Mg Tabs (Aspirin) ..... One tab daily Niaspan 500 Mg Tbcr (Niacin (antihyperlipidemic)) ..... One tab at bedtime - dispense as written BP today: 113/78 Prior BP: 115/76 (11/09/2011) N uclear Stress Findings: EF -60%. N o EKG changes diagnostic for ischemia. G ood exercise tolerance. N ormal myocardial perfusion without infarct or ischemia. (03/01/2007) C ardiac Cath: Moderate CAD involving the RCA. Mild CAD involving the left system. Normal LV systolic function. (10/12/2008) C ardiac Cath Comments: The patient needs aggressive risk factor modification and Nitrates for her spasm. (10/12/2008) C arotid Doppler/Duplex: LESS THAN 50 % STENOSIS OF THE INTERNAL CAROTID A RTERIES BILATERALLY. [facility] (11/02/2008) C HOL: 202 (11/17/2011) LDL: 123 (11/17/2011) HDL: 60 (11/17/2011) T (11/17/2011) H gb: 14.4 (11/17/2011) HCT: 44.3 (11/17/2011) RBC: 4.81 (11/17/2011) WBC: 7.6 (11/17/2011) B UN: 18.7 (11/17/2011) Creat: 0.91 (11/17/2011) Glucose: 107 (11/17/2011) N a+: 136 (11/17/2011) K+: 4.7 (11/17/2011) Cl: 99 (11/17/2011) PT: 9.3 (10/11/2008) INR: 0.9 (10/11/2008) T SH: 2.07 (11/17/2011) Tawanna Perry MD routine : H er updated medication list for this problem includes: Simcor 500-20 Mg Tb24 (Niacin-simvastatin) ..... One tab. daily BP today: / Prior BP: 117/93 (09/16/2010) Tawanna Perry MD routine : H er updated medication list for this problem includes: Metoprolol Tartrate 50 Mg Tabs (Metoprolol tartrate) ..... One tab. twice daily Aspirin 325 Mg Tabs (Aspirin) ..... One tab daily Lisinopril 10 Mg Tabs (Lisinopril) ..... 1 tablet by mouth daily Prior BP: 117/93 (09/16/2010) Labs Reviewed: C reat: 0.91 (02/14/2009) Tawanna Perry MD routine : H er updated medication list for this problem includes: Imdur 30 Mg Tb24 (Isosorbide mononitrate) ..... One tab. daily Metoprolol Tartrate 50 Mg Tabs (Metoprolol tartrate) ..... One tab. twice daily Aspirin 325 Mg Tabs (Aspirin) ..... One tab daily Lisinopril 10 Mg Tabs (Lisinopril) ..... 1 tablet by mouth daily BP today: / Prior BP: 117/93 (09/16/2010) Hgb: 11.9 (10/11/2008) HCT: 36.3 (10/11/2008) RBC: 4.32 (10/11/2008) WBC: 8.5 (10/11/2008) B UN: 17 (02/14/2009) Creat: 0.91 (02/14/2009) Glucose: 107 (02/14/2009) N a+: 140 (02/14/2009) K+: 4.4 (02/14/2009) Cl: 106 (02/14/2009) Calcium: 9.0 (02/14/2009) TSH: 1.36 (02/14/2009) Holter Monitor Comments: Sinus rhythm with sinus tachycardia 68-154bpm. N o VE beats. R are isolated junctional beats. (04/04/2007) N uclear Stress Findings: EF -60%. N o EKG changes diagnostic for ischemia. G ood exercise tolerance. N ormal myocardial perfusion without infarct or ischemia. (03/01/2007) E chocardiogram: Normal mitral valve. Normal aortic valve. Normal left ventricular systolic function. No pericardial effusion identified. Normal Aortic Velocities. Trace Mitral regurgitation. Trace Tricuspid regurgitation. E F 63%. [facility] (10/14/2010) C ardiac Cath: Moderate CAD involving the RCA. Mild CAD involving the left system. Normal LV systolic function. (10/12/2008) C ardiac Cath Comments: The patient needs aggressive risk factor modification and Nitrates for her spasm. (10/12/2008) Tawanna Perry MD routine : H er updated medication list for this problem includes: Simcor 500-20 Mg Tb24 (Niacin-simvastatin) ..... One tab. daily Imdur 30 Mg Tb24 (Isosorbide mononitrate) ..... One tab. daily Metoprolol Tartrate 50 Mg Tabs (Metoprolol tartrate) ..... One tab. twice daily Aspirin 325 Mg Tabs (Aspirin) ..... One tab daily Lisinopril 10 Mg Tabs (Lisinopril) ..... 1 tablet by mouth daily BP today: / Prior BP: 117/93 (09/16/2010) N uclear Stress Findings: EF -60%. N o EKG changes diagnostic for ischemia. G ood exercise tolerance. N ormal myocardial perfusion without infarct or ischemia. (03/01/2007) C ardiac Cath: Moderate CAD involving the RCA. Mild CAD involving the left system. Normal LV systolic function. (10/12/2008) C ardiac Cath Comments: The patient needs aggressive risk factor modification and Nitrates for her spasm. (10/12/2008) C arotid Doppler/Duplex: LESS THAN 50 % STENOSIS OF THE INTERNAL CAROTID A RTERIES BILATERALLY. [facility] (11/02/2008) H gb: 11.9 (10/11/2008) HCT: 36.3 (10/11/2008) RBC: 4.32 (10/11/2008) WBC: 8.5 (10/11/2008) B UN: 17 (02/14/2009) Creat: 0.91 (02/14/2009) Glucose: 107 (02/14/2009) N a+: 140 (02/14/2009) K+: 4.4 (02/14/2009) Cl: 106 (02/14/2009) PT: 9.3 (10/11/2008) INR: 0.9 (10/11/2008) T SH: 1.36 (02/14/2009) Tawanna Perry MD follow up: H er updated medication list for this problem includes: Simcor 500-20 Mg Tb24 (Niacin-simvastatin) ..... One tab. daily BP today: 117/93 Prior BP: 107/77 (11/01/2009) Tawanna Perry MD follow up: H er updated medication list for this problem includes: Metoprolol Tartrate 50 Mg Tabs (Metoprolol tartrate) ..... One tab. twice daily Aspirin 325 Mg Tabs (Aspirin) ..... One tab daily Lisinopril 10 Mg Tabs (Lisinopril) ..... 1 tablet by mouth daily BP today: 117/93 P rior BP: 107/77 (11/01/2009) Labs Reviewed: C reat: 0.91 (02/14/2009) Tawanna Perry MD follow up: H er updated medication list for this problem includes: Imdur 30 Mg Tb24 (Isosorbide mononitrate) ..... One tab. daily Metoprolol Tartrate 50 Mg Tabs (Metoprolol tartrate) ..... One tab. twice daily Aspirin 325 Mg Tabs (Aspirin) ..... One tab daily Lisinopril 10 Mg Tabs (Lisinopril) ..... 1 tablet by mouth daily Orders: E KG (CPT-[id number]) BP today: 117/93 Prior BP: 107/77 (11/01/2009) H gb: 11.9 (10/11/2008) HCT: 36.3 (10/11/2008) RBC: 4.32 (10/11/2008) WBC: 8.5 (10/11/2008) B UN: 17 (02/14/2009) Creat: 0.91 (02/14/2009) Glucose: 107 (02/14/2009) N a+: 140 (02/14/2009) K+: 4.4 (02/14/2009) Cl: 106 (02/14/2009) Calcium: 9.0 (02/14/2009) TSH: 1.36 (02/14/2009) Holter Monitor Comments: Sinus rhythm with sinus tachycardia 68-154bpm. N o VE beats. R are isolated junctional beats. (04/04/2007) N uclear Stress Findings: EF -60%. N o EKG changes diagnostic for ischemia. G ood exercise tolerance. N ormal myocardial perfusion without infarct or ischemia. (03/01/2007) E chocardiogram: EF - 60%. M ild diastolic dysfunction. T hickened mitral valve. T hickened aortic valve. T race mitral regurgitation. T race tricuspid regurgitation. (03/01/2007) C ardiac Cath: Moderate CAD involving the RCA. Mild CAD involving the left system. Normal LV systolic function. (10/12/2008) C ardiac Cath Comments: The patient needs aggressive risk factor modification and Nitrates for her spasm. (10/12/2008) Tawanna Perry MD follow up: H er updated medication list for this problem includes: Simcor 500-20 Mg Tb24 (Niacin-simvastatin) ..... One tab. daily Imdur 30 Mg Tb24 (Isosorbide mononitrate) ..... One tab. daily Metoprolol Tartrate 50 Mg Tabs (Metoprolol tartrate) ..... One tab. twice daily Aspirin 325 Mg Tabs (Aspirin) ..... One tab daily Lisinopril 10 Mg Tabs (Lisinopril) ..... 1 tablet by mouth daily BP today: 117/93 Prior BP: 107/77 (11/01/2009) N uclear Stress Findings: EF -60%. N o EKG changes diagnostic for ischemia. G ood exercise tolerance. N ormal myocardial perfusion without infarct or ischemia. (03/01/2007) C ardiac Cath: Moderate CAD involving the RCA. Mild CAD involving the left system. Normal LV systolic function. (10/12/2008) C ardiac Cath Comments: The patient needs aggressive risk factor modification and Nitrates for her spasm. (10/12/2008) C arotid Doppler/Duplex: LESS THAN 50 % STENOSIS OF THE INTERNAL CAROTID A RTERIES BILATERALLY. [facility] (11/02/2008) H gb: 11.9 (10/11/2008) HCT: 36.3 (10/11/2008) RBC: 4.32 (10/11/2008) WBC: 8.5 (10/11/2008) B UN: 17 (02/14/2009) Creat: 0.91 (02/14/2009) Glucose: 107 (02/14/2009) N a+: 140 (02/14/2009) K+: 4.4 (02/14/2009) Cl: 106 (02/14/2009) PT: 9.3 (10/11/2008) INR: 0.9 (10/11/2008) T SH: 1.36 (02/14/2009) Tawanna Perry MD out of metoprolol: H er updated medication list for this problem includes: Simcor 500-20 Mg Tb24 (Niacin-simvastatin) ..... One tab. daily BP today: 107/77 Prior BP: 140/84 (02/08/2009) Tawanna Perry MD out of metoprolol: T he following medications were removed from the medication list: Aceon Tabs (Perindopril erbumine tabs) ..... 20 mg daily Her updated medication list for this problem includes: Metoprolol Tartrate 50 Mg Tabs (Metoprolol tartrate) ..... One tab. twice daily Aspirin 325 Mg Tabs (Aspirin) ..... One tab daily Lisinopril 10 Mg Tabs (Lisinopril) ..... 1 tablet by mouth daily BP today: 107/77 P rior BP: 140/84 (02/08/2009) Labs Reviewed: C reat: 0.91 (02/14/2009) Tawanna Perry MD out of metoprolol: T he following medications were removed from the medication list: Aceon Tabs (Perindopril erbumine tabs) ..... 20 mg daily Her updated medication list for this problem includes: Imdur 30 Mg Tb24 (Isosorbide mononitrate) ..... One tab. daily Metoprolol Tartrate 50 Mg Tabs (Metoprolol tartrate) ..... One tab. twice daily Aspirin 325 Mg Tabs (Aspirin) ..... One tab daily Lisinopril 10 Mg Tabs (Lisinopril) ..... 1 tablet by mouth daily BP today: 107/77 Prior BP: 140/84 (02/08/2009) H gb: 11.9 (10/11/2008) HCT: 36.3 (10/11/2008) RBC: 4.32 (10/11/2008) WBC: 8.5 (10/11/2008) B UN: 17 (02/14/2009) Creat: 0.91 (02/14/2009) Glucose: 107 (02/14/2009) N a+: 140 (02/14/2009) K+: 4.4 (02/14/2009) Cl: 106 (02/14/2009) Calcium: 9.0 (02/14/2009) TSH: 1.36 (02/14/2009) Holter Monitor Comments: Sinus rhythm with sinus tachycardia 68-154bpm. N o VE beats. R are isolated junctional beats. (04/04/2007) N uclear Stress Findings: EF -60%. N o EKG changes diagnostic for ischemia. G ood exercise tolerance. N ormal myocardial perfusion without infarct or ischemia. (03/01/2007) E chocardiogram: EF - 60%. Mild diastolic dysfunction. T hickened mitral valve. T hickened aortic valve. T race mitral regurgitation. T race tricuspid regurgitation. (03/01/2007) C ardiac Cath: Moderate CAD involving the RCA. Mild CAD involving the left system. Normal LV systolic function. (10/12/2008) C ardiac Cath Comments: The patient needs aggressive risk factor modification and Nitrates for her spasm. (10/12/2008) Tawanna Perry MD out of metoprolol: T he following medications were removed from the medication list: Aceon Tabs (Perindopril erbumine tabs) ..... 20 mg daily Her updated medication list for this problem includes: Simcor 500-20 Mg Tb24 (Niacin-simvastatin) ..... One tab. daily Imdur 30 Mg Tb24 (Isosorbide mononitrate) ..... One tab. daily Metoprolol Tartrate 50 Mg Tabs (Metoprolol tartrate) ..... One tab. twice daily Aspirin 325 Mg Tabs (Aspirin) ..... One tab daily Lisinopril 10 Mg Tabs (Lisinopril) ..... 1 tablet by mouth daily BP today: 107/77 Prior BP: 140/84 (02/08/2009) N uclear Stress Findings: EF -60%. N o EKG changes diagnostic for ischemia. G ood exercise tolerance. N ormal myocardial perfusion without infarct or ischemia. (03/01/2007) C ardiac Cath: Moderate CAD involving the RCA. Mild CAD involving the left system. Normal LV systolic function. (10/12/2008) C ardiac Cath Comments: The patient needs aggressive risk factor modification and Nitrates for her spasm. (10/12/2008) C arotid Doppler/Duplex: LESS THAN 50 % STENOSIS OF THE INTERNAL CAROTID A RTERIES BILATERALLY. [facility] (11/02/2008) H gb: 11.9 (10/11/2008) HCT: 36.3 (10/11/2008) RBC: 4.32 (10/11/2008) WBC: 8.5 (10/11/2008) B UN: 17 (02/14/2009) Creat: 0.91 (02/14/2009) Glucose: 107 (02/14/2009) N a+: 140 (02/14/2009) K+: 4.4 (02/14/2009) Cl: 106 (02/14/2009) PT: 9.3 (10/11/2008) INR: 0.9 (10/11/2008) T SH: 1.36 (02/14/2009) Tawanna Perry MD Hosp [facility]U mail cath di [facility]: H er updated medication list for this problem includes: Simcor 500-20 Mg Tb24 (Niacin-simvastatin) ..... One tab. daily BP today: 148/84 Prior BP: 122/66 (10/11/2008) Tawanna Perry MD Hosp FU mail cath [facility]: H er updated medication list for this problem includes: Aceon Tabs (Perindopril erbumine tabs) ..... 20 mg daily Aspirin 81 Mg Tabs (Aspirin) ..... One tab. daily BP today: 148/84 Prior BP: 122/66 (10/11/2008) H gb: 11.9 (10/11/2008) HCT: 36.3 (10/11/2008) RBC: 4.32 (10/11/2008) WBC: 8.5 (10/11/2008) B UN: 11 (10/11/2008) Creat: 1.0 (10/11/2008) Na+: 140 (10/11/2008) K+: 4.0 (10/11/2008) Holter Monitor Comments: Sinus rhythm with sinus tachycardia 68-154bpm. N o VE beats. R are isolated junctional beats. (04/04/2007) N uclear Stress Findings: EF -60%. N o EKG changes diagnostic for ischemia. G ood exercise tolerance. N ormal myocardial perfusion without infarct or ischemia. (03/01/2007) E chocardiogram: EF - 60%. M ild diastolic dysfunction. T hickened mitral valve. T hickened aortic valve. T race mitral regurgitation. T race tricuspid regurgitation. (03/01/2007) C ardiac Cath: Moderate CAD involving the RCA. Mild CAD involving the left system. Normal LV systolic function. (10/12/2008) C ardiac Cath Comments: The patient needs aggressive risk factor modification and Nitrates for her spasm. (10/12/2008) Tawanna Perry MD [facility]osp [facility] mail cath [facility]: H er updated medication list for this problem includes: Aceon Tabs (Perindopril erbumine tabs) ..... 20 mg daily Aspirin 81 Mg Tabs (Aspirin) ..... One tab. daily BP today: 148/84 P rior BP: 122/66 (10/11/2008) Labs Reviewed: C reat: 1.0 (10/11/2008) Tawanna Perry MD Hosp FU mail cath [facility]: H er updated medication list for this problem includes: Aceon Tabs (Perindopril erbumine tabs) ..... 20 mg daily Aspirin 81 Mg Tabs (Aspirin) ..... One tab. daily Simcor 500-20 Mg Tb24 (Niacin-simvastatin) ..... One tab. daily BP today: 148/84 Prior BP: 122/66 (10/11/2008) N uclear Stress Findings: EF -60%. N o EKG changes diagnostic for ischemia. G ood exercise tolerance. N ormal myocardial perfusion without infarct or ischemia. (03/01/2007) C ardiac Cath: Moderate CAD involving the RCA. Mild CAD involving the left system. Normal LV systolic function. (10/12/2008) C ardiac Cath Comments: The patient needs aggressive risk factor modification and Nitrates for her spasm. (10/12/2008) H gb: 11.9 (10/11/2008) HCT: 36.3 (10/11/2008) RBC: 4.32 (10/11/2008) WBC: 8.5 (10/11/2008) B UN: 11 (10/11/2008) Creat: 1.0 (10/11/2008) Na+: 140 (10/11/2008) K+: 4.0 (10/11/2008) PT: 9.3 (10/11/2008) INR: 0.9 (10/11/2008) Tawanna Perry MD follow up: H er updated medication list for this problem includes: Aceon Tabs (Perindopril erbumine tabs) ..... 20 mg daily Aspirin 81 Mg Tabs (Aspirin) ..... One tab. daily BP today: 122/66 Prior BP: / () N uclear Stress Findings: EF -60%. N o EKG changes diagnostic for ischemia. G ood exercise tolerance. N ormal myocardial perfusion without infarct or ischemia. (03/01/2007) E chocardiogram: EF - 60%. M ild diastolic dysfunction. T hickened mitral valve. T hickened aortic valve. T race mitral regurgitation. T race tricuspid regurgitation. (03/01/2007) Tawanna Perry MD follow up: B P today: 122/66 Prior BP: / () Tawanna Perry MD follow up: H er updated medication list for this problem includes: Aceon Tabs (Perindopril erbumine tabs) ..... 20 mg daily Aspirin 81 Mg Tabs (Aspirin) ..... One tab. daily BP today: 122/66 Prior BP: / () H olter Monitor Comments: Sinus rhythm with sinus tachycardia 68-154bpm. N o VE beats. R are isolated junctional beats. (04/04/2007) N uclear Stress Findings: EF -60%. N o EKG changes diagnostic for ischemia. G ood exercise tolerance. N ormal myocardial perfusion without infarct or ischemia. (03/01/2007) E chocardiogram: EF - 60%. M ild diastolic dysfunction. T hickened mitral valve. T hickened aortic valve. T race mitral regurgitation. T race tricuspid regurgitation. (03/01/2007) Tawanna Perry MD follow up: H er updated medication list for this problem includes: Aceon Tabs (Perindopril erbumine tabs) ..... 20 mg daily Aspirin 81 Mg Tabs (Aspirin) ..... One tab. daily BP today: 122/66 Tawanna Perry MD Date Name Holter Monitor 48 hr Stress Regadenoson CBC (INCLUDES DIFF/P LT) TSH, free T4, total T3 HEMOGLOBIN A1c LIPID PANEL COMPREHENSIVE METABO LIC PANEL, W/EGFR HEMOGLOBIN A1c HEMOGLOBIN A1c Complete Echo CBC (H/H, RBC, INDIC ES, WBC, PLT) Vitamin D, 25-Hydrox y HEMOGLOBIN A1c LIPID PANEL THYROID PANEL WITH T SH, 3RD GENERATION COMPREHENSIVE METABO LIC PANEL, W/EGFR STR - Nuclear Complete Echo VITAMIN B12 Vitamin D 25-Hydroxy , D2 + D3 HEMOGLOBIN A1c T-4, FREE TSH, 3RD GENERATION LIPID PANEL CBC (INCLUDES DIFF/P LT) COMPREHENSIVE METABO LIC PANEL W/EGFR Lipoprotein Profile by NMR HISTORY OF PROCEDURES Procedure Date Procedure Name Provider Procedure Notes S tatus Complex e/m visit add on Tawanna Perry MD completed EKG Tawanna Perry MD completed EKG Tawanna Perry MD completed EKG Tawanna Perry MD completed EKG Tawanna Perry MD completed EKG Tawanna Perry MD completed EKG Tawanna Perry MD completed SNOMED-CT: 86631987 Physical Exam, Performed: Pulse Exam of Foot Dennis Contreras MD completed EKG Dennis Contreras MD completed SNOMED-CT: 886114064 [id number] Current Medications Documented Dennis Contreras MD completed SNOMED-CT: [id number] Physical Exam, Performed: Pulse Exam of Foot Tawanna Perry MD completed SNOMED-CT: 985216567 136005 Current Medications Documented Tawanna Perry MD completed SNOMED-CT: [id number] Physical Exam, Performed: Pulse Exam of Foot Tawanna Perry MD completed SNOMED-CT: [id number] Current Medications Documented Tawanna Perry MD completed Stress EKG Noah Godoy MD completed Cardiolite, 2 units Tawanna Perry MD completed SPECT Images Rivera Cruz MD compl eted SNOMED-CT: 86902399 Physical Exam, Performed: Pulse Exam of Foot Tawanna Perry MD completed SNOMED-CT: 187257281 [id number] Current Medications Documented Tawanna Perry MD completed SNOMED-CT: 11022129 Physical Exam, Performed: Pulse Exam of Foot Tawanna Perry MD completed SNOMED-CT: [id number] [id number] Current Medications Documented Tawanna Perry MD completed EKG Tawanna Perry MD completed EKG Tawanna Perry MD completed ePrescribe - Check t his box if eRx is used Tawanna Perry MD completed EKG Tawanna Perry MD completed EKG Tawanna Perry MD completed EKG Tawanna Perry MD completed
--- OUTSIDE RECORDS SUMMARY | 2025-03-02 08:25 | XMS_ITS | Encounter Summary ---
Author Organization 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 Historical Provider [facility] TREVIZO Final Result documented in this encounter Visit Diagnoses Not on filedocumented in this encounter Care Teams Land[employer] Groundskeeping Laborer Relationship Specialty Start Date End Date Trevon Longoria MD PCP - General Family Medicine 09/21/19 09/30/22 Ruslan Armstrong PA PCP - General Family Medicine 10/01/22 documented as of this encounter
--- OUTSIDE RECORDS SUMMARY | 2025-03-02 08:26 | XMS_ITS | Data Portability ---
Author Organization [facility], Main Office Address [address] [place] [address] Assessment Encounter Date Assessment Date Assessment LastModified by Organization Details LastModified Time 07/14/2023 07/14/2023 Will continue current therapy blood work has been ordered follow-up with me in 6 months [email or web address] Not available 08/15/2023 17:33:43 08/04/2023 08/04/2023 Doxycycline continue current therapy blood work reviewed follow-up if not improved with her back otherwise in 4-6 [email or web address] Not available 08/25/2023 10:47:04 Plan of Treatment Reminders Order Date Submit Date Provider Last Modified By Organization Details Last Modified Time Details Appointments None recorded. Lab HbA1c (hemoglobin A1c), blood 2022 023 [email or web address] Not available 4 16:36:15 albumin/cre atinine, mass ratio, urine 2022 023 [email or web address] Not available 4 16:36:15 CMP, serum or plasma 2022 023 [email or web address] Not available 4 16:36:14 lipid panel, serum 2022 023 SITA Not available 3 09:38:06 CBC w/ auto diff 2022 023 [email or web address] Not available 4 16:36:15 urinalysis, microscopic 2022 023 [email or web address] Not available 4 16:36:15 Referral None recorded. Procedures None recorded. Surgeries None recorded. Imaging None recorded. Medication Orders None recorded. Patient TargetsNo targets recorded. Patient InstructionsNo instructions recorded. Reason for Referral None Reported. Results Created Date Observation Date Name Description Value Unit Range Abnormal Flag Note LastModifiedBy Organization Detail LastModifiedTime 01/13/20 23 01/13/2023 URINA LYSIS COMPL ETE, IRIS color light- yellow Not Available [facility] (Lab) [address] [place], [address], 01/13/2023 17:28:58 01/13/20 23 01/13/2023 URINA LYSIS COMPL ETE, IRIS appear extra turbid abnormal Not Available [facility] (Lab) [address] [place], [address], 01/13/2023 17:28:58 01/13/20 23 01/13/2023 URINA LYSIS COMPL ETE, IRIS specific gravity 1.010 1.001- 1.030 Not Available [facility] (Lab) [address] [place], [address], 01/13/2023 17:28:58 01/13/20 23 01/13/2023 URINA LYSIS COMPL ETE, IRIS pH 6.5 pH_un its 5.0-9. 0 Not Available [facility] (Lab) [address] [place], [address], 01/13/2023 17:28:58 01/13/20 23 01/13/2023 URINA LYSIS COMPL ETE, IRIS leukocytes >/=500 schuyler/u L negati ve- abnormal Not Available [facility] (Lab) [address] [place], [address], 01/13/2023 17:28:58 01/13/20 23 01/13/2023 URINA LYSIS COMPL ETE, IRIS nitrite negati ve negati ve- Not Available [facility] (Lab) [address] [place], [address], 01/13/2023 17:28:58 01/13/20 23 01/13/2023 URINA LYSIS COMPL ETE, IRIS protein 10 mg/dL negati ve- abnormal Not Available [facility] (Lab) [address] [place], [address], 01/13/2023 17:28:58 01/13/20 23 01/13/2023 URINA LYSIS COMPL ETE, IRIS glucose >/=100 0 mg/dL normal - abnormal Not Available [facility] (Lab) [address] [place], [address], 01/13/2023 17:28:58 01/13/20 23 01/13/2023 URINA LYSIS COMPL ETE, IRIS ketones negati ve mg/dL negati ve- Not Available [facility] (Lab) [address] [place], [address], 01/13/2023 17:28:58 01/13/20 23 01/13/2023 URINA LYSIS COMPL ETE, IRIS urobilinogen normal mg/dL normal - Not Available [facility] (Lab) [address] [place], [address], 01/13/2023 17:28:58 01/13/20 23 01/13/2023 URINA LYSIS COMPL ETE, IRIS bilirubin negati ve mg/dL negati ve- Not Available [facility] (Lab) [address] [place], [address], 01/13/2023 17:28:58 01/13/20 23 01/13/2023 URINA LYSIS COMPL ETE, IRIS blood 0.5 mg/dL negati ve- abnormal Not Available [facility] (Lab) [address] [place], [address], 01/13/2023 17:28:58 01/13/20 23 01/13/2023 URINA LYSIS COMPL ETE, IRIS white blood cells >100 /i??h pfi?? 0-8 abnormal Not Available [facility] (Lab) [address] [place], [address], 01/13/2023 17:28:58 01/13/20 01/13/2023 URINA LYSIS COMPL ETE, IRIS white blood cell clumps modera te /i??h pfi?? none seen- abnormal Not Available [facility] (Lab) [address] [place], [address], 01/13/2023 17:28:58 01/13/20 23 01/13/2023 URINA LYSIS COMPL ETE, IRIS red blood cells none /i??h pfi?? 0-4 Not Available [facility] (Lab) [address] [place], [address], 01/13/2023 17:28:58 01/13/20 23 01/13/2023 URINA LYSIS COMPL ETE, IRIS bacteria modera te abnormal Not Available [facility] (Lab) [address] [place], [address], 01/13/2023 17:28:58 01/13/20 23 01/13/2023 URINA LYSIS COMPL ETE, IRIS squamous epithelial none /i??l pfi?? abnormal Not Available [facility] (Lab) [address] [place], [address], 01/13/2023 17:28:58 02/06/20 23 02/05/2023 CULTU RE URINE urc ===== ===== ===== ===== ===== ===== ===== ===== ===== ===== ===== ===== ===== ===== ===== ===== ===== ===== ===== ===== ===== ===== ===== ===== CULTU RE NO.: [id number] Exam Statu s: Final Exam Type: CULTU RE URINE ===== ===== ===== ===== ===== ===== ===== ===== ===== ===== ===== ===== ===== ===== ===== ===== ===== ===== ===== ===== ===== ===== ===== ===== Cultu re Repor t: Organ ism #01 Esche rl a coli (escc ol) Antib iotic s escco l Achie vable Achie vable (01) Dosag e Serum Level Urine Level mcg/m l mcg/m l Ivette antonio <=2 S 021D Ampic illin >=32 R 021D Ampic illin /Sulb actam 16 I 021D Cefaz lizzie <=4 S 021D Cefep jorgito <=1 S 021D Cefox itin <= 4 S 021D Ceftr iaxon e <=1 S 021D Cipro floxa antonio <=0.2 5 S 021D ESBL NEG - 021D Genta micin <=1 S 021D Levof loxac in <=0.1 2 S 021D Merop enem <=0.2 5 S 021D Piper acill in./T azaba <=4 S 021D Tobra mycin <=1 S 021D Trmet hopri m.Sul fa >=320 R 021D rt - Test Card Code AST-G N 021D o2 - Final Organ ism ESCHE R 021D af - Antib iotic Fami TRIME T 021D af - Antib iotic Famil y Na ap - Pheno type Name RESIS T 021D ap - Pheno type Name Nitro furan toin <=16 S 021D Not Available [facility] (Lab) [address] [place], [address], 02/07/2023 08:23:18 03/07/20 24 03/07/2024 CBC/C OMPLE TE BLD COUNT W/DIF F white blood cells 6.7 x10'3 /uL 4.2-10 .8 Not Available [facility] (Lab) [address] [place], [address], 03/07/2024 13:47:32 03/07/20 24 03/07/2024 CBC/C OMPLE TE BLD COUNT W/DIF F red blood cells 4.43 x10'6 /uL 3.80-5 .20 Not Available [facility] (Lab) [address] [place], [address], 03/07/2024 13:47:32 03/07/20 24 03/07/2024 CBC/C OMPLE TE BLD COUNT W/DIF F hemoglobin 13.5 g/dL 12.0-1 5.6 Not Available [facility] (Lab) [address] [place], [address], 03/07/2024 13:47:32 03/07/20 24 03/07/2024 CBC/C OMPLE TE BLD COUNT W/DIF F hematocrit 41.9 % 35.7-4 5.7 Not Available [facility] (Lab) [address] [place], [address], 03/07/2024 13:47:32 03/07/20 24 03/07/2024 CBC/C OMPLE TE BLD COUNT W/DIF F mean red cell volume 94.6 fL 82.0-9 9.0 Not Available [facility] (Lab) [address] [place], [address], 03/07/2024 13:47:32 03/07/20 24 03/07/2024 CBC/C OMPLE TE BLD COUNT W/DIF F mean red cell hemoglobin 30.5 pg 27.0-3 3.0 Not Available [facility] (Lab) [address] [place], [address], 03/07/2024 13:47:32 03/07/20 24 03/07/2024 CBC/C OMPLE TE BLD COUNT W/DIF F mean RBC HGB concentratio n 32.2 g/dL 31.0-3 6.0 Not Available [facility] (Lab) [address] [place], [address], 03/07/2024 13:47:32 03/07/20 24 03/07/2024 CBC/C OMPLE TE BLD COUNT W/DIF F red cell distribution width 12.3 % 11.8-1 5.5 Not Available [facility] (Lab) [address] [place], [address], 03/07/2024 13:47:32 03/07/20 24 03/07/2024 CBC/C OMPLE TE BLD COUNT W/DIF F platelets 315 x10'3 /uL 150-40 0 Not Available [facility] (Lab) [address] [place], [address], 03/07/2024 13:47:32 03/07/20 24 03/07/2024 CBC/C OMPLE TE BLD COUNT W/DIF F mean platelet volume 9.3 fL 9.0-12 .4 Not Available [facility] (Lab) [address] [place], [address], 03/07/2024 13:47:32 03/07/20 24 03/07/2024 CBC/C OMPLE TE BLD COUNT W/DIF F neutrophils 58.3 % 39.0-7 2.0 Not Available [facility] (Lab) [address] [place], [address], 03/07/2024 13:47:32 03/07/20 24 03/07/2024 CBC/C OMPLE TE BLD COUNT W/DIF F lymphocytes 29.7 % 16.0-4 7.0 Not Available [facility] (Lab) [address] [place], [address], 03/07/2024 13:47:32 03/07/20 24 03/07/2024 CBC/C OMPLE TE BLD COUNT W/DIF F monocytes 8.0 % 5.0-12 .0 Not Available [facility] (Lab) [address] [place], [address], 03/07/2024 13:47:32 03/07/20 24 03/07/2024 CBC/C OMPLE TE BLD COUNT W/DIF F eosinophils 2.4 % 1.0-7. 0 Not Available [facility] (Lab) [address] [place], [address], 03/07/2024 13:47:32 03/07/20 24 03/07/2024 CBC/C OMPLE TE BLD COUNT W/DIF F basophils 0.7 % 0.0-2. 0 Not Available [facility] (Lab) [address] [place], [address], 03/07/2024 13:47:32 03/07/20 24 03/07/2024 CBC/C OMPLE TE BLD COUNT W/DIF F immature granulocytes 0.9 % 0.00-0 .50 high Not Available [facility] (Lab) [address] [place], [address], 03/07/2024 13:47:32 03/07/20 24 03/07/2024 CBC/C OMPLE TE BLD COUNT W/DIF F neutrophils, absolute count 3.92 x10'3 /uL 1.5-8. 0 Not Available [facility] (Lab) [address] [place], [address], 03/07/2024 13:47:32 03/07/20 24 03/07/2024 CBC/C OMPLE TE BLD COUNT W/DIF F lymphocytes, absolute count 2.00 x10'3 /uL 1.07-3 .43 Not Available [facility] (Lab) [address] [place], [address], 03/07/2024 13:47:32 03/07/20 24 03/07/2024 CBC/C OMPLE TE BLD COUNT W/DIF F monocytes, absolute count 0.54 x10'3 /uL 0.29-0 .99 Not Available [facility] (Lab) [address] [place], [address], 03/07/2024 13:47:32 03/07/20 24 03/07/2024 CBC/C OMPLE TE BLD COUNT W/DIF F eosinophils, absolute count 0.16 x10'3 /uL 0.02-0 .53 Not Available [facility] (Lab) [address] [place], [address], 03/07/2024 13:47:32 03/07/20 24 03/07/2024 CBC/C OMPLE TE BLD COUNT W/DIF F basophils, absolute count 0.05 x10'3 /uL 0.01-0 .08 Not Available [facility] (Lab) [address] [place], [address], 03/07/2024 13:47:32 03/07/20 24 03/07/2024 CBC/C OMPLE TE BLD COUNT W/DIF F immature granulocytes ,absolute 0.06 x10'3 /uL 0.00-0 .05 high Not Available [facility] (Lab) [address] [place], [address], 03/07/2024 13:47:32 03/07/20 24 03/07/2024 CBC/C OMPLE TE BLD COUNT W/DIF F nucleated red blood cells 0.0 % -0 Not Available [facility] (Lab) [address] [place], [address], 03/07/2024 13:47:32 03/07/20 24 03/07/2024 CBC/C OMPLE TE BLD COUNT W/DIF F NRBC# 0.00 x10'3 /uL Not Available [facility] (Lab) [address] [place], [address], 03/07/2024 13:47:32 03/07/20 24 03/07/2024 HEMOG LOBIN A1C HA1C 6.0 % 4.0-6. 0 Diabe jeffry Neptalie susana Crite genaro: <5.7% Consi stent with absen ce of diabe jeffry 5.7-6 .4% Consi stent with incre ased risk for diabe jeffry (pred iabet es) >OR=6 .5% Consi stent with diabe jeffry REFER ENCE: Diabe jeffry Care 2016, 39(Stevens ppl.1 ):s13 -s22 Not Available [facility] (Lab) [address] [place], [address], 03/07/2024 15:20:23 03/07/20 24 03/07/2024 LIPID PANEL cholesterol 105 mg/dL 140-19 9 low NIH BILLY NSUS RECOM MENDA TION FOR MARYJO STERO L: ADULT CHILD LOW RISK: <200 <170 BORDE RLINE : <200- 239 ----- HIGH RISK: >240 >200 Not Available [facility] (Lab) [address] [place], [address], 03/07/2024 17:21:41 03/07/20 24 03/07/2024 LIPID PANEL triglyceride s 111 mg/dL 0-150 NIH BILLY NSUS REPOR T RECOM MENDA TION FOR TRIGL YCERI TINY: ADULT CHILD LOW RISK: <150 ----- BODER LINE: 150-1 99 ----- HIGH RISK: >200 ----- Not Available [facility] (Lab) [address] [place], [address], 03/07/2024 17:21:41 03/07/20 24 03/07/2024 LIPID PANEL HDL cholesterol 49 mg/dL 40- Not Available [facility] (Lab) [address] [place], [address], 03/07/2024 17:21:41 03/07/20 24 03/07/2024 LIPID PANEL LDL cholesterol, calculated 34 mg/dL 0-130 NIH BILLY NSUS REPOR T RECOM MENDA TIONS FOR LDL: ADULT CHILD LOW RISK <130 <110 (OPTI MAL LDL) <100 ----- BORDE RLINE : 130-1 59 ----- HIGH RISK: >160 >130 A TRIGL YCERI DE RESUL T >400 INVAL IDATE S THE CALCU LATIO N FOR LDL FRACT IONAT ION - THE LDL RESUL T WILL NOT BE REPOR BELLE. Not Available [facility] (Lab) [address] [place], [address], 03/07/2024 17:21:41 03/07/20 24 03/07/2024 COMPR EHENS MAYE METAB OLIC PANEL sodium 140 mmol/ L 137-14 5 Not Available [facility] (Lab) [address] [place], [address], 03/07/2024 17:21:46 03/07/20 24 03/07/2024 COMPR EHENS MAYE METAB OLIC PANEL potassium 4.2 mmol/ L 3.5-5. 1 Not Available [facility] (Lab) [address] [place], [address], 03/07/2024 17:21:46 03/07/20 24 03/07/2024 COMPR EHENS MAYE METAB OLIC PANEL chloride 105 mmol/ L 98-107 Not Available [facility] (Lab) [address] [place], [address], 03/07/2024 17:21:46 03/07/20 24 03/07/2024 COMPR EHENS MAYE METAB OLIC PANEL carbon dioxide 27 mmol/ L 22-30 Not Available [facility] (Lab) [address] [place], [address], 03/07/2024 17:21:46 03/07/20 24 03/07/2024 COMPR EHENS MAYE METAB OLIC PANEL anion gap 12.2 mmol/ L 14-22 low Not Available [facility] (Lab) [address] [place], [address], 03/07/2024 17:21:46 03/07/20 24 03/07/2024 COMPR EHENS MAYE METAB OLIC PANEL glucose 108 mg/dL 70-99 high Not Available [facility] (Lab) [address] [place], [address], 03/07/2024 17:21:46 03/07/20 24 03/07/2024 COMPR EHENS MAYE METAB OLIC PANEL BUN 14 mg/dL 8-19 Not Available [facility] (Lab) [address] [place], [address], 03/07/2024 17:21:46 03/07/20 24 03/07/2024 COMPR EHENS MAYE METAB OLIC PANEL creatinine 0.70 mg/dL 0.66-1 .25 Not Available [facility] (Lab) [address] [place], [address], 03/07/2024 17:21:46 03/07/20 24 03/07/2024 COMPR EHENS MAYE METAB OLIC PANEL GFR >60 Refer ence Range : Grubbs ge GFR Healt hy Adult : >60 mL/mi n/1.7 3 m2 Chron ic Kidne y Disea se: 15-60 mL/mi n/1.7 3 m2 Kidne y Failu re: <15/m L/min /1.73 m2 www.n iddk. nih.g ov The MDRD study equat ion has not been valid ated in child atul <18 years of age; pregn ant women ; the elder ly >85 years of age; or in some racia l or ethni c subgr oups, such as Hisms nics. Outsi de the valid ated rosalinda eters , estim ated GFR is less accur ate, requi ring clini emmanuelle judgm ent on a case- by-ca se basis . Clini emmanuelle inter preta tion for other races and ages must be made by the clini brody. The MDRD study equat ion has not been valid ated for the evalu ation of serum creat inine relat ed to nutri fritz l statu s or medic ation usage . For perso ns <18 years of age, a pedia tric GFR calcu lator is avail able on the [facility] websi te: https ://valentin lara.trae barfield/shamika ofess ional s/kdo qi/gf r_cal culat or Not Available [facility] (Lab) [address] [place], [address], 03/07/2024 17:21:46 03/07/20 24 03/07/2024 COMPR EHENS MAYE METAB OLIC PANEL alkaline phosphatase 67 U/L 38-126 Not Available [facility] (Lab) [address] [place], [address], 03/07/2024 17:21:46 03/07/20 24 03/07/2024 COMPR EHENS MAYE METAB OLIC PANEL alanine aminotransfe rase 25 U/L 0-35 Not Available [facility] (Lab) [address] [place], [address], 03/07/2024 17:21:46 03/07/20 24 03/07/2024 COMPR EHENS MAYE METAB OLIC PANEL aspartate aminotransfe rase 29 U/L 15-37 Not Available [facility] (Lab) [address] [place], [address], 03/07/2024 17:21:46 03/07/20 24 03/07/2024 COMPR EHENS MAYE METAB OLIC PANEL bilirubin, total 0.50 mg/dL 0.20-1 .30 Not Available [facility] (Lab) [address] [place], [address], 03/07/2024 17:21:46 03/07/20 24 03/07/2024 COMPR EHENS MAYE METAB OLIC PANEL calcium 9.0 mg/dL 8.4-10 .2 Not Available [facility] (Lab) [address] [place], [address], 03/07/2024 17:21:46 03/07/20 24 03/07/2024 COMPR EHENS MAYE METAB OLIC PANEL total protein 7.0 g/dL 6.3-8. 2 Not Available [facility] (Lab) [address] [place], [address], 03/07/2024 17:21:46 03/07/20 24 03/07/2024 COMPR EHENS MAYE METAB OLIC PANEL albumin 4.3 g/dL 3.0-4. 4 Not Available [facility] (Lab) [address] [place], [address], 03/07/2024 17:21:46 03/07/20 24 03/07/2024 COMPR EHENS MAYE METAB OLIC PANEL globulin 2.7 g/dL 2.6-4. 2 Not Available [facility] (Lab) [address] [place], [address], 03/07/2024 17:21:46 03/07/20 24 03/07/2024 COMPR EHENS MAYE METAB OLIC PANEL A/G ratio 1.6 ratio 1.0-2. 0 Not Available [facility] (Lab) [address] [place], [address], 03/07/2024 17:21:46 08/22/20 24 08/22/2024 CBC/C OMPLE TE BLD COUNT W/DIF F white blood cells 6.4 x10'3 /uL 4.2-10 .8 Not Available [facility] (Lab) [address] [place], [address], 08/22/2024 13:18:11 08/22/20 24 08/22/2024 CBC/C OMPLE TE BLD COUNT W/DIF F red blood cells 4.78 x10'6 /uL 3.80-5 .20 Not Available [facility] (Lab) [address] [place], [address], 08/22/2024 13:18:11 08/22/20 24 08/22/2024 CBC/C OMPLE TE BLD COUNT W/DIF F hemoglobin 14.8 g/dL 12.0-1 5.6 Not Available [facility] (Lab) [address] [place], [address], 08/22/2024 13:18:11 08/22/20 24 08/22/2024 CBC/C OMPLE TE BLD COUNT W/DIF F hematocrit 45.1 % 35.7-4 5.7 Not Available [facility] (Lab) [address] [place], [address], 08/22/2024 13:18:11 08/22/2008/22/2024 CBC/C OMPLE TE BLD COUNT W/DIF F mean red cell volume 94.4 fL 82.0-9 9.0 Not Available [facility] (Lab) [address] [place], [address], 08/22/2024 13:18:11 08/22/2008/22/2024 CBC/C OMPLE TE BLD COUNT W/DIF F mean red cell hemoglobin 31.0 pg 27.0-3 3.0 Not Available [facility] (Lab) [address] [place], [address], 08/22/2024 13:18:11 08/22/2008/22/2024 CBC/C OMPLE TE BLD COUNT W/DIF F mean RBC HGB concentratio n 32.8 g/dL 31.0-3 6.0 Not Available [facility] (Lab) [address] [place], [address], 08/22/2024 13:18:11 08/22/2008/22/2024 CBC/C OMPLE TE BLD COUNT W/DIF F red cell distribution width 12.5 % 11.8-1 5.5 Not Available [facility] (Lab) [address] [place], [address], 08/22/2024 13:18:11 08/22/20 24 08/22/2024 CBC/C OMPLE TE BLD COUNT W/DIF F platelets 279 x10'3 /uL 150-40 0 Not Available [facility] (Lab) [address] [place], [address], 08/22/2024 13:18:11 08/22/20 24 08/22/2024 CBC/C OMPLE TE BLD COUNT W/DIF F mean platelet volume 9.5 fL 9.0-12 .4 Not Available [facility] (Lab) [address] [place], [address], 08/22/2024 13:18:11 08/22/20 24 08/22/2024 CBC/C OMPLE TE BLD COUNT W/DIF F neutrophils 58.9 % 39.0-7 2.0 Not Available [facility] (Lab) [address] [place], [address], 08/22/2024 13:18:11 08/22/20 24 08/22/2024 CBC/C OMPLE TE BLD COUNT W/DIF F lymphocytes 33.2 % 16.0-4 7.0 Not Available [facility] (Lab) [address] [place], [address], 08/22/2024 13:18:11 08/22/20 24 08/22/2024 CBC/C OMPLE TE BLD COUNT W/DIF F monocytes 5.6 % 5.0-12 .0 Not Available [facility] (Lab) [address] [place], [address], 08/22/2024 13:18:11 08/22/2008/22/2024 CBC/C OMPLE TE BLD COUNT W/DIF F eosinophils 1.3 % 1.0-7. 0 Not Available [facility] (Lab) [address] [place], [address], 08/22/2024 13:18:11 08/22/20 24 08/22/2024 CBC/C OMPLE TE BLD COUNT W/DIF F basophils 0.8 % 0.0-2. 0 Not Available [facility] (Lab) [address] [place], [address], 08/22/2024 13:18:11 08/22/20 24 08/22/2024 CBC/C OMPLE TE BLD COUNT W/DIF F immature granulocytes 0.2 % 0.00-0 .50 Not Available [facility] (Lab) [address] [place], [address], 08/22/2024 13:18:11 08/22/20 24 08/22/2024 CBC/C OMPLE TE BLD COUNT W/DIF F neutrophils, absolute count 3.77 x10'3 /uL 1.5-8. 0 Not Available [facility] (Lab) [address] [place], [address], 08/22/2024 13:18:11 08/22/20 24 08/22/2024 CBC/C OMPLE TE BLD COUNT W/DIF F lymphocytes, absolute count 2.12 x10'3 /uL 1.07-3 .43 Not Available [facility] (Lab) [address] [place], [address], 08/22/2024 13:18:11 08/22/20 24 08/22/2024 CBC/C OMPLE TE BLD COUNT W/DIF F monocytes, absolute count 0.36 x10'3 /uL 0.29-0 .99 Not Available [facility] (Lab) [address] [place], [address], 08/22/2024 13:18:11 08/22/20 24 08/22/2024 CBC/C OMPLE TE BLD COUNT W/DIF F eosinophils, absolute count 0.08 x10'3 /uL 0.02-0 .53 Not Available [facility] (Lab) [address] [place], [address], 08/22/2024 13:18:11 08/22/20 24 08/22/2024 CBC/C OMPLE TE BLD COUNT W/DIF F basophils, absolute count 0.05 x10'3 /uL 0.01-0 .08 Not Available [facility] (Lab) [address] [place], [address], 08/22/2024 13:18:11 08/22/20 24 08/22/2024 CBC/C OMPLE TE BLD COUNT W/DIF F immature granulocytes ,absolute 0.01 x10'3 /uL 0.00-0 .05 Not Available [facility] (Lab) [address] [place], [address], 08/22/2024 13:18:11 08/22/20 24 08/22/2024 CBC/C OMPLE TE BLD COUNT W/DIF F nucleated red blood cells 0.0 % -0 Not Available [facility] (Lab) [address] [place], [address], 08/22/2024 13:18:11 08/22/20 24 08/22/2024 CBC/C OMPLE TE BLD COUNT W/DIF F NRBC# 0.00 x10'3 /uL Not Available [facility] (Lab) [address] [place], [address], 08/22/2024 13:18:11 08/22/20 24 08/22/2024 MICRO ALBUM N RNDM W/CRE AT RATIO ur creat 51.50 mg/dL REFER ENCE RANGE NOT ESTAB EDMAR D FOR RANDO M URINE CREAT ININE Not Available [facility] (Lab) [address] [place], [address], 08/22/2024 13:25:22 08/22/20 24 08/22/2024 MICRO ALBUM N RNDM W/CRE AT RATIO microalbumin , urine 7.3 mg/L 0.0-16 .6 Not Available [facility] (Lab) [address] [place], [address], 08/22/2024 13:25:22 08/22/20 24 08/22/2024 MICRO ALBUM N RNDM W/CRE AT RATIO microalbumin /creatinine ratio 14 mcg/m g 0-29 [facility] N DEFIN ES ABNOR MALIT IES IN ALBUM IN EXCRE TION FOLLO WS: CATEG ORY RESUL T (MCG/ MG CREAT ININE ) HI L <30 MICRO ALBUM INURI A 30-29 9 CLINI EMMANUELLE ALBUM INURI A > OR = 300 THE ADA RECOM MENDS THAT 2 OF 2 SPECI MENS COLLE CTED WITHI N A 3- TO 6-MON TH PERIO D BE ABNOR MAL BEFOR E CONSI MADHURI G A PATIE NT TO HAVE CROSS ED ONE OF THESE DIAGN OSTIC THRES HOLDS . REFER ENCE: DIABE JEFFRY CARE, VOL. 26: [id number], NOVUA 2002 Not Available [facility] (Lab) [address] [place], [address], 08/22/2024 13:25:22 08/22/20 24 08/22/2024 COMPR EHENS MAYE METAB OLIC PANEL sodium 137 mmol/ L 137-14 5 Not Available [facility] (Lab) [address] [place], [address], 08/22/2024 13:26:48 08/22/20 24 08/22/2024 COMPR EHENS MAYE METAB OLIC PANEL potassium 4.2 mmol/ L 3.5-5. 1 Not Available [facility] (Lab) [address] [place], [address], 08/22/2024 13:26:48 08/22/20 24 08/22/2024 COMPR EHENS MAYE METAB OLIC PANEL chloride 103 mmol/ L 98-107 Not Available [facility] (Lab) [address] [place], [address], 08/22/2024 13:26:48 08/22/20 24 08/22/2024 COMPR EHENS MAYE METAB OLIC PANEL carbon dioxide 27 mmol/ L 22-30 Not Available [facility] (Lab) [address] [place], [address], 08/22/2024 13:26:48 08/22/20 24 08/22/2024 COMPR EHENS MAYE METAB OLIC PANEL anion gap 11.2 mmol/ L 14-22 low Not Available [facility] (Lab) [address] [place], [address], 08/22/2024 13:26:48 08/22/20 24 08/22/2024 COMPR EHENS MAYE METAB OLIC PANEL glucose 109 mg/dL 70-99 high Not Available [facility] (Lab) [address] [place], [address], 08/22/2024 13:26:48 08/22/20 24 08/22/2024 COMPR EHENS MAYE METAB OLIC PANEL BUN 18 mg/dL 8-19 Not Available [facility] (Lab) [address] [place], [address], 08/22/2024 13:26:48 08/22/20 24 08/22/2024 COMPR EHENS MAYE METAB OLIC PANEL creatinine 0.75 mg/dL 0.66-1 .25 Not Available [facility] (Lab) [address] [place], [address], 08/22/2024 13:26:48 08/22/2008/22/2024 COMPR EHENS MAYE METAB OLIC PANEL GFR >60 Refer ence Range : Grubbs ge GFR Healt hy Adult : >60 mL/mi n/1.7 3 m2 Chron ic Kidne y Disea se: 15-60 mL/mi n/1.7 3 m2 Kidne y Failu re: <15/m L/min /1.73 m2 [email or web address] The MDRD study equat ion has not been valid ated in child atul <18 years of age; pregn ant women ; the elder ly >85 years of age; or in some racia l or ethni c subgr oups, such as Hisfredrick nics. Outsi de the valid ated rosalinda eters , estim ated GFR is less accur ate, requi ring clini emmanuelle judgm ent on a case- by-ca se basis . Clini emmanuelle inter preta tion for other races and ages must be made by the clini brody. The MDRD study equat ion has not been valid ated for the evalu ation of serum creat inine relat ed to nutri fritz l statu s or medic ation usage . For perso ns <18 years of age, a pedia tric GFR calcu lator is avail able on the [facility] websi te: [email or web address] :[email or web address] ofess ional [email or web address] qi/gf r_cal culat or Not Available [facility] (Lab) [address] [place], [address], 08/22/2024 13:26:48 08/22/20 24 08/22/2024 COMPR EHENS MAYE METAB OLIC PANEL alkaline phosphatase 80 U/L 38-126 Not Available [facility] (Lab) [address] [place], [address], 08/22/2024 13:26:48 08/22/20 24 08/22/2024 COMPR EHENS MAYE METAB OLIC PANEL alanine aminotransfe rase 25 U/L 0-35 Not Available [facility] (Lab) [address] [place], [address], 08/22/2024 13:26:48 08/22/20 24 08/22/2024 COMPR EHENS MAYE METAB OLIC PANEL aspartate aminotransfe rase 30 U/L 15-37 Not Available [facility] (Lab) [address] [place], [address], 08/22/2024 13:26:48 08/22/20 24 08/22/2024 COMPR EHENS MAYE METAB OLIC PANEL bilirubin, total 0.70 mg/dL 0.20-1 .30 Not Available [facility] (Lab) [address] [place], [address], 08/22/2024 13:26:48 08/22/20 24 08/22/2024 COMPR EHENS MAYE METAB OLIC PANEL calcium 9.3 mg/dL 8.4-10 .2 Not Available [facility] (Lab) [address] [place], [address], 08/22/2024 13:26:48 08/22/20 24 08/22/2024 COMPR EHENS MAYE METAB OLIC PANEL total protein 7.5 g/dL 6.3-8. 2 Not Available [facility] (Lab) [address] [place], [address], 08/22/2024 13:26:48 08/22/20 24 08/22/2024 COMPR EHENS MAYE METAB OLIC PANEL albumin 4.6 g/dL 3.0-4. 4 high Not Available [facility] (Lab) [address] [place], [address], 08/22/2024 13:26:48 08/22/20 24 08/22/2024 COMPR EHENS MAYE METAB OLIC PANEL globulin 2.9 g/dL 2.6-4. 2 Not Available [facility] (Lab) [address] [place], [address], 08/22/2024 13:26:48 08/22/20 24 08/22/2024 COMPR EHENS MAYE METAB OLIC PANEL A/G ratio 1.6 ratio 1.0-2. 0 Not Available [facility] (Lab) [address] [place], [address], 08/22/2024 13:26:48 08/22/20 24 08/22/2024 LIPID PANEL cholesterol 108 mg/dL 140-19 9 low NIH BILLY NSUS RECOM MENDA TION FOR MARYJO STERO L: ADULT CHILD LOW RISK: <200 <170 BORDE RLINE : <200- 239 ----- HIGH RISK: >240 >200 Not Available [facility] (Lab) [address] [place], [address], 08/22/2024 13:26:53 08/22/20 24 08/22/2024 LIPID PANEL triglyceride s 66 mg/dL 0-150 NIH BILLY NSUS REPOR T RECOM MENDA TION FOR TRIGL YCERI TINY: ADULT CHILD LOW RISK: <150 ----- BODER LINE: 150-1 99 ----- HIGH RISK: >200 ----- Not Available [facility] (Lab) [address] [place], [address], 08/22/2024 13:26:53 08/22/20 24 08/22/2024 LIPID PANEL HDL cholesterol 58 mg/dL 40- Not Available [facility] (Lab) [address] [place], [address], 08/22/2024 13:26:53 08/22/20 24 08/22/2024 LIPID PANEL LDL cholesterol, calculated 37 mg/dL 0-130 NIH BILLY NSUS REPOR T RECOM MENDA TIONS FOR LDL: ADULT CHILD LOW RISK <130 <110 (OPTI MAL LDL) <100 ----- BORDE RLINE : 130-1 59 ----- HIGH RISK: >160 >130 A TRIGL YCERI DE RESUL T >400 INVAL IDATE S THE CALCU LATIO N FOR LDL FRACT IONAT ION - THE LDL RESUL T WILL NOT BE REPOR BELLE. Not Available [facility] (Lab) [address] [place], [address], 08/22/2024 13:26:53 08/22/20 24 08/22/2024 HEMOG LOBIN A1C HA1C 5.9 % 4.0-6. 0 Diabe jeffry Scree susana Crite genaro: <5.7% Consi stent with absen ce of diabe jeffry 5.7-6 .4% Consi stent with incre ased risk for diabe jeffry (pred iabet es) >OR=6 .5% Consi stent with diabe jeffry REFER ENCE: Diabe jeffry Care 2016, 39(Stevens ppl.1 ):s13 -s22 Not Available [facility] ([facility]) [address] [place], [address], 08/22/2024 15:49:21 10/01/20 23 10/01/2023 MAMMO , mirian changg, digit al, bilat eral No observ ation record ed. [address] [place] [address], [address], 10/25/2023 11:39:10 10/01/20 23 10/01/2023 MAMMO , mirian changg, digit al, bilat eral No observ ation record ed. [address] [facility], [place], [address], 10/25/2023 12:55:56 Result Notes None recorded. Problems Name Problem SNOMED Code Status Onset Date Resolution Date Notes Provider Name and Address Organization Details Recorded Time Dyslipidemia 939114895 Active 2022 Not Available [facility] 3 13:35:20 Type 2 diabetes mellitus 35506065 Active 2022 Not Available [facility] 3 13:35:20 Coronary atheroscleros is 007985483 Active 2022 Not Available [facility] 3 13:35:20 Anxiety 82618763 Active 2022 Not Available [facility] 3 13:35:20 Dysuria 41640781 Active 2022 Not Available [facility] 3 13:35:20 Essential hypertension 76012765 Active 2022 Not Available [facility] 3 13:35:20 Blood in urine 64937586 Active 2022 Not Available [facility] 3 13:35:20 Urinary tract infectious disease 34878300 Active 2022 Not Available [facility] 3 13:35:21 Eruption 957882558 Active 2022 Cassia Farley RN null, [facility] 3 12:31:24 Type 2 diabetes mellitus without complication 256519357 Active 2022 Mary Martínez null, [facility] 3 11:43:33 Problem Notes None recorded. Procedures Surgical History Date Name Laterality Status Provider Name and Address Organization Details Recorded Time Cardiac Cath completed Not Available [facility] 01/27/2023 16:10:58 completed Not Available [place] [address] 01/27/2023 16:10:58 Appendectomy completed Not Available [facility] 01/27/2023 16:10:58 Imaging Results Imaging Date Name Status LastModified by Organiz ation Details LastModified Time 10/01/2023 MAMMO, screening, digital, bilateral completed [address], [address], 10/25/2023 11:39:10 10/01/2023 MAMMO, screening, digital, bilateral completed [address], [address], 10/25/2023 12:55:56 Procedure Notes None recorded. Medical Equipment None Reported. Allergies Allergen ID Allergen Name Allergen Category Reaction Reaction Severity Criticality Documentation Date Start Date Code Code System Note Provider Name and Address Organization Details Recorded Time 70825 Product containin g penicilli n (product) medicatio n Not available Not available Not available 01/27/2023 50494 8001 SNOMED Not Available [facility] 3 16:12:41 58234 Cipro medicatio n Not available Not available Not available 01/27/202310927 3 RxNorm Not Available [facility] 3 16:12:41 Medications Name Sig Start Date Stop Date Status Note LastModified by Organization Details LastModified Time losartan 50 mg tablet TAKE 1 TABLET BY MOUTH EVERY DAY 2023 active Not Available Not Available Not Avai lable fluconazole 100 mg tablet TAKE 1 TABLET BY MOUTH DAILY FOR 5 DAYS. 01/13 completed Not Available Not Available Not Available metformin 500 mg tablet active Not Available Not Available Not Available doxycycline hyclate 100 mg capsule TAKE 1 CAPSULE BY MOUTH TWICE DAILY FOR 7 DAYS 08/04 completed Not Available Not Available Not Available alprazolam 1 mg tablet TAKE 1 TABLET BY MOUTH NEEDED active Not Available Not Available No t Available fluconazole 150 mg tablet TAKE 1 TABLET BY MOUTH AT THE BEGINNING OF ANTIBIOTI C THERAPY AND ONE AT THE END OF 7 DAY THERAPY 01/13 completed Not Available Not Available Not Available phenazopyri dine 200 mg tablet TAKE 1 TABLET BY MOUTH 3 TIMES A DAY NEEDED FOR BLADDER SPASMS FOR UP TO 2 DAYS. 01/13 completed Not Available Not Available Not Available Prilosec 20 mg capsule,del ayed release Take 1 capsule every day by oral route. 01/13 completed Not Available Not Available Not Available metoprolol succinate ER 100 mg tablet,exte nded release 24 hr TAKE 1 TABLET BY MOUTH EVERY DAY 2023 active Not Available Not Available Not Avai lable sulfamethox azole 800 mg-trimetho prim 160 mg tablet TAKE 1 TABLET BY MOUTH TWICE A DAY 07/14 completed Not Available Not Available Not Available isosorbide dinitrate 30 mg tablet Take 1 tablet twice a day by oral route. 01/13 completed Not Available Not Available Not Available cyanocobala min (vit B-12) 1,000 mcg/mL injection solution INJECT 1 ML (1,000 MCG TOTAL) INTO THE MUSCLE INSTRUCTE D EVERY 30 (THIRTY) DAYS active Not Available Not Available No t Available losartan 25 mg tablet Take 1 tablet every day by oral route. 2023 active Not Available Not Available Not Avai lable methylpredn isolone 4 mg tablets in a dose pack FOLLOW PACKAGE DIRECTION S 01/13 completed Not Available Not Available Not Available rosuvastati n 20 mg tablet TAKE 1 TABLET BY MOUTH EVERY DAY active Not Available Not Available No t Available nitrofurant oin monohydrate /macrocryst als 100 mg capsule TAKE 1 CAPSULE BY MOUTH TWICE DAILY FOR 5 DAYS 12/06 completed Not Available Not Available Not Available omeprazole 01/13 completed Not Available Not Available Not Available losartan 50 mg 01/13 completed Not Available Not Available Not Available Simcor 500/20 mg 01/13 completed Not Available Not Available Not Available Jardiance 10 mg tablet TAKE 1 TABLET BY MOUTH EVERY DAY 2023 active Not Available Not Available Not Avai lable Ozempic 0.25 mg or 0.5 mg (2 mg/1.5 mL) subcutaneou s pen injector INJECT 0.25 MG UNDER THE SKIN EVERY 7 DAYS. 01/13 completed Not Available Not Available Not Available Ozempic 1 mg/dose (4 mg/3 mL) subcutaneou s pen injector INJECT 1 MG SUBCUTANE OUSLY ONCE A WEEK active Not Available Not Available No t Available Ozempic 2 mg/dose (8 mg/3 mL) subcutaneou s pen injector INJECT 2 MG SUBCUTANE OUSLY EVERY 7 DAYS active Not Available Not Available No t Available Vitals Date Recorded Body mass index (BMI) Body height Heart rate Body temperature Body weight Systolic blood pressure Diastolic blood pressure Provider Name and Address Organization Details Last Updated DateTime 3 25.4 kg/m2 162.56 cm 97 /min 97.4 [degF] 90702.6 7 g 120 mm[Hg] 80 mm[Hg] Not Available [facility] 3 16:11:02 Date Recorded Body height Body mass index (BMI) Body weight Body temperature Heart rate Systolic blood pressure Diastolic blood pressure Provider Name and Address Organization Details Last Updated DateTime 3 162.56 cm 24.5 kg/m2 50393.7 1 g 97.9 [degF] 81 /min 128 mm[Hg] 74 mm[Hg] Lucille dominguez RN [place] [facility] 3 09:52:07 Date Recorded Body height Body mass index (BMI) Body weight Body temperature Heart rate Systolic blood pressure Diastolic blood pressure Provider Name and Address Organization Details Last Updated DateTime 3 162.56 cm 24.5 kg/m2 00901.7 1 g 97.6 [degF] 76 /min 116 mm[Hg] 72 mm[Hg] Lucille dominguez RN [place] - [facility] 14:05:19 Social History Question Answer Notes LastModified by Organization Details LastModified Time Tobacco Smoking Status Former Smoker QUIT 40+ YEARS AGO Not Available [facility] 01/27/2023 16:10:49 Do You Have An Advance Directive? Yes MIGRATION.030 [id number] Information not available 01/27/2023 What Is Your Level Of Alcohol Consumption? Moderate MIGRATION.0301 [id number] Information not available 01/27/2023 Do You Wear A Helmet When Biking? Yes MIGRATION.030 654153 Information not available 01/27/2023 Are You Blind Or Do You Have Difficulty Seeing? Yes Information not available 07/14/2023 What Is Your Level Of Caffeine Consumption? Moderate MIGRATION.0301 [id number] Information not available 01/27/2023 What Is Your Code Status? Full Code MIGRATION.030 [id number] Information not available 01/27/2023 In The 14 Days Before Symptom Onset, Have You Had Close Contact With A Laboratory-confi rmed COVID-19 While That Case Was Ill? No MIGRATION.030 [id number] Information not available 01/27/2023 In The 14 Days Before Symptom Onset, Have You Had Close Contact With A Person Who Is Under Investigation For COVID-19 While That Person Was Ill? No MIGRATION.0301 [id number] Information not available 01/27/2023 Are You Currently Employed? Yes Information not available 07/14/2023 Are You Deaf Or Do You Have Serious Difficulty Hearing? No Information not available 07/14/2023 What Type Of Diet Are You Following? REGULAR MIGRATION.030 378401 Information not available 01/27/2023 What Is The Highest Grade Or Level Of School You Have Completed Or The Highest Degree You Have Received? 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 No MIGRATION.030 158382 Information not available 01/27/2023 What Is The Fluoride Status Of Your Home? Unknown MIGRATION.0301 369647 Information not available 01/27/2023 When Did You Quit Smoking? 14+yearssincelastc igarette MIGRATION.0301 794585 Information not available 01/27/2023 Do You Use Insect Repellent Routinely? Yes Summer Time MIGRATION.0301 [id number] Information not available 01/27/2023 Where [facility] You Live? [facility] MIGRATION.0301 477900 Information not available 01/27/2023 Do You Have A Medical Power Of Landscape Crew Leader? Yes MIGRATION.0301 [id number] Information not available 01/27/2023 What Was The Date Of Your Most Recent Tobacco Screening? 08/04/2023 Information not available 08/04/2023 How Many Children Do You Have? 2 MIGRATION.0301 757402 Information not available 01/27/2023 Do You Have Any Pets? No MIGRATION.0301 438131 Information not available 01/27/2023 What Is Your Relationship Status? MIGRATION.0301 244211 Information not available 01/27/2023 Do You Use Your Seat Belt Or Car Seat Routinely? Yes MIGRATION.0301 364346 Information not available 01/27/2023 Do You Have Smoke And Carbon Monoxide Detectors In Your Home? Yes MIGRATION.0301 812733 Information not available 01/27/2023 Are You Passively Exposed To Smoke? No MIGRATION.0301 406914 Information not available 01/27/2023 Are There Any Smokers In Your House? No MIGRATION.0301 255578 Information not available 01/27/2023 Do You Feel Stressed (tense, Restless, Nervous, Or Anxious, Or Unable To Sleep At Night)? GV67990-3 MIGRATION.0301 005137 Information not available 01/27/2023 Do You Use Any Illicit Or Recreational Drugs? No MIGRATION.0301 923853 Information not available 01/27/2023 Do You Use Sunscreen Routinely? Yes Summer Time MIGRATION.0301 712055 Information not available 01/27/2023 Has Tobacco Cessation Counseling Been Provided? No MIGRATION.0301 020827 Information not available 01/27/2023 Have You Recently Traveled Abroad? No MIGRATION.0301 301748 Information not available 01/27/2023 Do You Have Any Dietary Restrictions? No MIGRATION.0301 155088 Information not available 01/27/2023 Do You Or Have You Ever Used Any Other Forms Of Tobacco Or Nicotine? No MIGRATION.0301 609766 Information not available 01/27/2023 Sex: Female Functional Status Question Answer Note LastModified by Organizat ion Details LastModified Time Do you have difficulty walking or climbing stairs? No Information not available 07/14/2023 Do you have transportation difficulties? No Information not available 07/14/2023 Do you have difficulty doing errands alone? No Information not available 07/14/2023 Are you able to care for yourself? Yes Information n ot available 07/14/2023 Do you have difficulty dressing or bathing? No Information not available 07/14/2023 What is your exercise level? Occasional MIGRATION.8105701 026 Information not available 01/27/2023 Mental Status Question Answer Note LastModified by Organization D etails LastModified Time Do you have difficulty concentrating, remembering or making decisions? No Information no t available 07/14/2023 Family History Relationship Description Onset Age of this Age Resolved Age Notes LastModified by Organization Details LastModified Time Mother Diabetes mellitus MIGRATION.270 [id number] Not available 01/27/2023 16:10:59 Mother Hypertensive disorder MIGRATION.965 [id number] Not available 01/27/2023 16:10:59 Mother Heart disease MIGRATION.071 [id number] Not available 01/27/2023 16:10:59 Father Family history of malignant neoplasm MIGRATION.491 [id number] Not available 01/27/2023 16:10:59 Medical History Condition Response HEART DISEASE/HEART PROBLEMS Y DIABETES, TYPE Y HEARTBURN / REFLUX Y HAVE YOU BEEN HOSPITALIZED OR SEEN IN [facility] ER IN THE PAST YEAR ? N HYPERTENSION Y HIGH CHOLESTEROL / HYPERLIPIDEMIA Y Gynecological HistoryNo gynecological history recorded. Obstetrics History GPAL:G 0 P 0 0 0 0 Immunizations Vaccine Type Date Status Note Provider Nam e and Address Organization Details Recorded Time influenza, unspecified formulation 09/27/2023 completed MALIKA Abe[place] [facility] 09/27/2023 10:38:29 Past Encounters Encounter ID Performer Location Encounter Start Date Encounter Closed Date Diagnosis/Indication Diagnosis SNOMED-CT Code Diagnosis ICD10 Code Diagnosis Note [id number] [facility] Internal Med [facility] [address] [facility] [address] [place] [address] 01/13/2023 00:00:00 01/13/2023 22:50:47 [id number] Clifton Grant MD [facility] Internal Med [facility] [address] [facility] [address] [place] [address] 07/14/2023 09:39:46 07/14/2023 10:30:02 Essential hypertension 76175489 I10 Dyslipidemia 903533489 E 78.5 Type 2 bernice betes mellitus 45342039 E11.9 [id number] Clifton Grant MD [facility] Internal Med [facility] [address] [place] [address] 08/04/2023 13:56:53 08/04/2023 14:31:34 Dyslipidemia 990437603 E78.5 Essential hypertension 84585486 I10 Type 2 bernice betes mellitus 39196799 E11.9 Health Concerns Section Related Observation LastModified by Organization Detai ls LastModified Time None Recorded Concern Status LastModified by Organization Details LastModified Time None Recorded Advance Directives Directive Y: Payers Encounter Date Sequence Insurance Name Policy Number Policy Benjamin Covered Member ID Benjamin Member ID Guarantor Name 07/14/2023 1 [facility] [place] [id number] Kathie Adrian [id number] Kathie Adrian 08/04/2023 1 [facility] ([place] [id number] Kathie Adrian [id number] Kathie Adrian Notes Date Note Type Note Provider Name and Address Organization Details Recorded Time 07/14/2023 text/html diabetes needs blood work but no polyphagia polydipsia hypertension no headache no dizziness dyslipidemia taking her medications without any side effect Clifton Grant MD [address] [facility] [address], [place], [address], [facility] 08/15/2023 17:33:59 08/04/2023 text/html Overall not doin g dee Grant MD [address], [place], [address], [place] [facility] 08/25/2023 10:47:07 OBGyn Episode No OBEpisode recorded.
--- OUTSIDE RECORDS SUMMARY | 2025-03-02 08:26 | XMS_ITS | Data Portability ---
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 Start GLP-1 has been on Ozempic in the past but could not find it from because of supply chain issues [email or web address] Not available 02/26/2024 22:55:20 08/21/2024 08/21/2024 EKG shows normal sinus rhythm with no ischemic changes. We will obtain blood work she will continue on her medications. From my standpoint sounds stable for her surgery as long as blood work is fine see me back in 6 months. she has been advised to stop her GLP 1 by Anesthesiology 4 weeks before surgery . [email or web address] Not available 08/21/2024 21:14:12 12/28/2024 12/28/2024 Continue current therapy blood work has been ordered podiatry foot examination for diabetes low-fat up in 6 months [email or web address] Not available 12/30/2024 17:22:23 Plan of Treatment Reminders Order Date Submit Date Provider Last Modified By Organization Details Last Modified Time Details Appointments ANY 15 2024 09:15A Roderick Grant MD Not available Not available Not available Lab albumin/c reatinine , mass ratio, urine 2024 025 [facility], [address] [facility], [address], [place], [address], 02/02/2025 16:28:05 HbA1c (hemoglob in A1c), blood 2024 025 [facility], [address], [address], [place], [address], 02/02/2025 16:28:05 lipid panel, serum 2024 025 [facility], [address], [address], [place], [address], 02/02/2025 16:28:05 CBC w/ auto diff 2024 025 [facility], [address], [address], [place], [address], 02/02/2025 16:28:05 CMP, serum or plasma 2024 025 [facility], [address], [address], [place], [address], 02/02/2025 16:28:05 HbA1c (hemoglob in A1c), blood 2023 024 [facility], [address], [address], [place], [address], 11/06/2024 15:09:53 albumin/c reatinine , mass ratio, urine 2023 024 [email or web address] [facility], [address], [address], [place], [address], 09/13/2024 15:04:07 CBC w/ auto diff 2023 024 [facility], [address], [address], [place], [address], 08/22/2024 15:58:22 CMP, serum or plasma 2023 024 [facility], [address], [address], [place], [address], 08/22/2024 15:58:22 lipid panel, serum 2023 024 [facility], [address] [facility] [address], [address], [place], [address], 08/22/2024 15:58:22 HbA1c (hemoglob in A1c), blood 2023 024 [facility], [address] [facility] [address], [address], [place], [address], 03/10/2024 14:56:07 CBC w/ auto diff 2023 024 [facility], [address], [place], [address], 03/07/2024 17:31:37 lipid panel, serum 2023 024 [facility], [address] [facility], [address], [place], [address], 03/10/2024 14:56:07 CMP, serum or plasma 2023 024 [facility], [address] [place] [address], [address], [place], [address], 03/10/2024 14:56:07 Referral podiatris t referral 2024 025 tito Mahoney DPM, [address] [facility], [address], [place], [address], 02/12/2025 14:24:24 Procedures None recorded. Surgeries None recorded. Imaging electroca rdiogram 2023 024 In-Office Order, Internal Use Only DO Not Attach Compendium DO Not Attach Compendium, Do Not Delete/merge, [id number] 08/21/2024 13:45:11 Medication Orders Mounjaro 5 mg/0.5 mL subcutane ous pen injector [address] [facility] [address], [address] , [place], [address], 07/19/2024 14:07:21 Patient TargetsNo targets recorded. 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 Referring Physician: Opal Grant, Internal Medicine, Encounter Date: 12/28/2024 Results Created Date Observation Date Name Description Value Unit Range Abnormal Flag Note LastModifiedBy Organization Detail LastModifiedTime 03/07/20 24 03/07/2024 Compr ehens saw metab olic 1999 panel - Serum or Plasm a sodium sodiu m Not Available Not Available 01/16/2025 11:09:15 03/07/20 24 03/07/2024 Compr ehens saw metab olic 2000 panel - Serum or Plasm a potassium potas sium Not Available Not Available 01/16/2025 11:09:15 03/07/20 24 03/07/2024 Compr ehens saw metab olic 2000 panel - Serum or Plasm a chloride chlor edgar Not Available Not Available 01/16/2025 11:09:15 03/07/20 24 03/07/2024 Compr ehens saw metab olic 2000 panel - Serum or Plasm a carbon dioxide carbo n dioxi de Not Available Not Available 01/16/2025 11:09:15 03/07/20 24 03/07/2024 Compr ehens saw metab olic 2000 panel - Serum or Plasm a anion gap low anion gap Not Available Not Available 01/16/2025 11:09:15 03/07/20 24 03/07/2024 Compr ehens saw metab olic 2000 panel - Serum or Plasm a glucose high gluco se Not Available Not Available 01/16/2025 11:09:15 03/07/20 24 03/07/2024 Compr ehens saw metab olic 2000 panel - Serum or Plasm a BUN BUN Not Available Not Availa ble 01/16/2025 11:09:15 03/07/20 24 03/07/2024 Compr ehens saw metab olic 2000 panel - Serum or Plasm a creatinine creat inine Not Available Not Available 01/16/2025 11:09:15 03/07/20 24 03/07/2024 Compr ehens saw metab olic 2000 panel - Serum or Plasm a GFR >60 GFR Not Available Not Availa ble 01/16/2025 11:09:15 03/07/20 24 03/07/2024 Compr ehens saw metab olic 2000 panel - Serum or Plasm a alkaline phosphatase alkal ine phosp hatas e Not Available Not Available 01/16/2025 11:09:15 03/07/20 24 03/07/2024 Compr ehens saw metab olic 2000 panel - Serum or Plasm a alanine aminotransfe rase jessi ne amino trans feras e Not Available Not Available 01/16/2025 11:09:15 03/07/20 24 03/07/2024 Compr ehens saw metab olic 2000 panel - Serum or Plasm a aspartate aminotransfe rase aspar zacarias amino trans feras e Not Available Not Available 01/16/2025 11:09:15 03/07/20 24 03/07/2024 Compr ehens saw metab olic 2000 panel - Serum or Plasm a bilirubin, total bilir ubin, total Not Available Not Available 01/16/2025 11:09:15 03/07/20 24 03/07/2024 Compr ehens saw metab olic 2000 panel - Serum or Plasm a calcium calci um Not Available Not Available 01/16/2025 11:09:15 03/07/20 24 03/07/2024 Compr ehens saw metab olic 2000 panel - Serum or Plasm a total protein total prote in Not Available Not Available 01/16/2025 11:09:15 03/07/20 24 03/07/2024 Compr ehens saw metab olic 1999 panel - Serum or Plasm a albumin album in Not Available Not Available 01/16/2025 11:09:15 03/07/20 24 03/07/2024 Compr ehens saw metab olic 1999 panel - Serum or Plasm a globulin globu janeth Not Available Not Available 01/16/2025 11:09:15 03/07/20 24 03/07/2024 Compr ehens saw metab olic 2000 panel - Serum or Plasm a A/G ratio A/G ratio Not Available Not Available 01/16/2025 11:09:15 03/07/20 24 03/07/2024 Lipid 1996 panel - Serum or Plasm a cholesterol low johnathon stero l Not Available Not Available 01/16/2025 11:09:15 03/07/20 24 03/07/2024 Lipid 1996 panel - Serum or Plasm a triglyceride s trigl yceri wayne Not Available Not Available 01/16/2025 11:09:15 03/07/20 24 03/07/2024 Lipid 1996 panel - Serum or Plasm a HDL cholesterol HDL johnathon stero l Not Available Not Available 01/16/2025 11:09:15 03/07/20 24 03/07/2024 Lipid 1996 panel - Serum or Plasm a cholesterol in LDL [mass/volume ] in serum or plasma LDL johnathon stero l, calcu lated Not Available Not Available 01/16/2025 11:09:15 03/07/20 24 03/07/2024 Hemog lobin A1c/H emogl obin. total in Blood by HPLC hemoglobin A1C/hemoglob in.total in blood HA1C Not Available Not Available 12/30 11:09:15 03/07/20 24 03/07/2024 CBC W Auto Diffe renti al panel - Blood white blood cells white blood cells Not Available Not Available 01/16/2025 11:09:14 03/07/20 24 03/07/2024 CBC W Auto Diffe renti al panel - Blood red blood cells red blood cells Not Available Not Available 01/16/2025 11:09:14 03/07/20 24 03/07/2024 CBC W Auto Diffe renti al panel - Blood hemoglobin hemog lobin Not Available Not Available 01/16/2025 11:09:14 03/07/20 24 03/07/2024 CBC W Auto Diffe renti al panel - Blood hematocrit hemat ocrit Not Available Not Available 01/16/2025 11:09:14 03/07/20 24 03/07/2024 CBC W Auto Diffe renti al panel - Blood mean red cell volume mean red cell volum e Not Available Not Available 01/16/2025 11:09:14 03/07/20 24 03/07/2024 CBC W Auto Diffe renti al panel - Blood mean red cell hemoglobin mean red cell hemog lobin Not Available Not Available 01/16/2025 11:09:14 03/07/20 24 03/07/2024 CBC W Auto Diffe renti al panel - Blood mean RBC HGB concentratio n mean RBC HGB jesus ntrat ion Not Available Not Available 01/16/2025 11:09:14 03/07/20 24 03/07/2024 CBC W Auto Diffe renti al panel - Blood red cell distribution width red cell distr ibuti on width Not Available Not Available 01/16/2025 11:09:14 03/07/20 24 03/07/2024 CBC W Auto Diffe renti al panel - Blood platelets plate lets Not Available Not Available 01/16/2025 11:09:14 03/07/20 24 03/07/2024 CBC W Auto Diffe renti al panel - Blood mean platelet volume mean plate let volum e Not Available Not Available 01/16/2025 11:09:14 03/07/20 24 03/07/2024 CBC W Auto Diffe renti al panel - Blood neutrophils neutr ophil s Not Available Not Available 01/16/2025 11:09:14 03/07/20 24 03/07/2024 CBC W Auto Diffe renti al panel - Blood lymphocytes lymph ocyte s Not Available Not Available 01/16/2025 11:09:14 03/07/20 24 03/07/2024 CBC W Auto Diffe renti al panel - Blood monocytes monoc ytes Not Available Not Available 01/16/2025 11:09:14 03/07/20 24 03/07/2024 CBC W Auto Diffe renti al panel - Blood eosinophils eosin ophil s Not Available Not Available 01/16/2025 11:09:14 03/07/20 24 03/07/2024 CBC W Auto Diffe renti al panel - Blood basophils basop hils Not Available Not Available 01/16/2025 11:09:14 03/07/20 24 03/07/2024 CBC W Auto Diffe renti al panel - Blood immature granulocytes high immat ure granu locyt es Not Available Not Available 01/16/2025 11:09:14 03/07/20 24 03/07/2024 CBC W Auto Diffe renti al panel - Blood neutrophils, absolute count neutr ophil s, absol squaxin count Not Available Not Available 01/16/2025 11:09:14 03/07/20 24 03/07/2024 CBC W Auto Diffe renti al panel - Blood lymphocytes, absolute count lymph ocyte s, absol squaxin count Not Available Not Available 01/16/2025 11:09:14 03/07/20 24 03/07/2024 CBC W Auto Diffe renti al panel - Blood monocytes, absolute count monoc ytes, absol squaxin count Not Available Not Available 01/16/2025 11:09:14 03/07/20 24 03/07/2024 CBC W Auto Diffe renti al panel - Blood eosinophils, absolute count eosin ophil s, absol squaxin count Not Available Not Available 01/16/2025 11:09:14 03/07/20 24 03/07/2024 CBC W Auto Diffe renti al panel - Blood basophils, absolute count basop hils, absol squaxin count Not Available Not Available 01/16/2025 11:09:14 03/07/20 24 03/07/2024 CBC W Auto Diffe renti al panel - Blood immature granulocytes ,absolute high immat ure granu locyt es,ab solut e Not Available Not Available 01/16/2025 11:09:14 03/07/20 24 03/07/2024 CBC W Auto Diffe renti al panel - Blood nucleated red blood cells nucle ated red blood cells Not Available Not Available 01/16/2025 11:09:14 03/07/20 24 03/07/2024 CBC W Auto Diffe renti al panel - Blood NRBC# NRBC# Not Available Not Availa ble 01/16/2025 11:09:14 08/22/20 24 08/22/2024 Hemog lobin A1c/H emogl obin. total in Blood by HPLC hemoglobin A1C/hemoglob in.total in blood HA1C Not Available Not Available 12/30 11:09:15 08/22/20 24 08/22/2024 Lipid 1995 panel - Serum or Plasm a cholesterol low johnathon stero l Not Available Not Available 01/16/2025 11:09:15 08/22/20 24 08/22/2024 Lipid 1995 panel - Serum or Plasm a triglyceride s trigl yceri wayne Not Available Not Available 01/16/2025 11:09:15 08/22/20 24 08/22/2024 Lipid 1995 panel - Serum or Plasm a HDL cholesterol HDL johnathon stero l Not Available Not Available 01/16/2025 11:09:15 08/22/20 24 08/22/2024 Lipid 1995 panel - Serum or Plasm a LDL cholesterol, calculated LDL johnathon stero l, calcu lated Not Available Not Available 01/16/2025 11:09:15 08/22/20 24 08/22/2024 Compr ehens saw metab olic 2000 panel - Serum or Plasm a sodium sodiu m Not Available Not Available 01/16/2025 11:09:15 08/22/20 24 08/22/2024 Compr ehens saw metab olic 2000 panel - Serum or Plasm a potassium potas sium Not Available Not Available 01/16/2025 11:09:15 08/22/20 24 08/22/2024 Compr ehens saw metab olic 2000 panel - Serum or Plasm a chloride chlor edgar Not Available Not Available 01/16/2025 11:09:15 08/22/20 24 08/22/2024 Compr ehens saw metab olic 1999 panel - Serum or Plasm a carbon dioxide carbo n dioxi de Not Available Not Available 01/16/2025 11:09:15 08/22/20 24 08/22/2024 Compr ehens saw metab olic 2000 panel - Serum or Plasm a anion gap low anion gap Not Available Not Available 01/16/2025 11:09:15 08/22/20 24 08/22/2024 Compr ehens saw metab olic 2000 panel - Serum or Plasm a glucose high gluco se Not Available Not Available 01/16/2025 11:09:15 08/22/20 24 08/22/2024 Compr ehens saw metab olic 2000 panel - Serum or Plasm a BUN BUN Not Available Not Availa ble 01/16/2025 11:09:15 08/22/20 24 08/22/2024 Compr ehens saw metab olic 2000 panel - Serum or Plasm a creatinine creat inine Not Available Not Available 01/16/2025 11:09:15 08/22/20 24 08/22/2024 Compr ehens saw metab olic 2000 panel - Serum or Plasm a GFR >60 GFR Not Available Not Availa ble 01/16/2025 11:09:15 08/22/20 24 08/22/2024 Compr ehens saw metab olic 2000 panel - Serum or Plasm a alkaline phosphatase alkal ine phosp hatas e Not Available Not Available 01/16/2025 11:09:15 08/22/20 24 08/22/2024 Compr ehens saw metab olic 2000 panel - Serum or Plasm a alanine aminotransfe rase jessi ne amino trans feras e Not Available Not Available 01/16/2025 11:09:15 08/22/20 24 08/22/2024 Compr ehens saw metab olic 2000 panel - Serum or Plasm a aspartate aminotransfe rase aspar zacarias amino trans feras e Not Available Not Available 01/16/2025 11:09:15 08/22/20 24 08/22/2024 Compr ehens saw metab olic 2000 panel - Serum or Plasm a bilirubin, total bilir ubin, total Not Available Not Available 01/16/2025 11:09:15 08/22/20 24 08/22/2024 Compr ehens saw metab olic 2000 panel - Serum or Plasm a calcium calci um Not Available Not Available 01/16/2025 11:09:15 08/22/20 24 08/22/2024 Compr ehens saw metab olic 2000 panel - Serum or Plasm a total protein total prote in Not Available Not Available 01/16/2025 11:09:15 08/22/20 24 08/22/2024 Compr ehens saw metab olic 2000 panel - Serum or Plasm a albumin high album in Not Available Not Available 01/16/2025 11:09:15 08/22/20 24 08/22/2024 Compr ehens saw metab olic 1999 panel - Serum or Plasm a globulin globu janeth Not Available Not Available 01/16/2025 11:09:15 08/22/20 24 08/22/2024 Compr ehens saw metab olic 1999 panel - Serum or Plasm a A/G ratio A/G ratio Not Available Not Available 01/16/2025 11:09:15 08/22/20 24 08/22/2024 Micro album in/Cr eatin ine [Rati o] in Urine ur creat ur creat Not Available Not Available 01/16/2025 11:09:15 08/22/20 24 08/22/2024 Micro album in/Cr eatin ine [Rati o] in Urine microalbumin , urine micro album in, urine Not Available Not Available 01/16/2025 11:09:15 08/22/20 24 08/22/2024 Micro album in/Cr eatin ine [Rati o] in Urine microalbumin /creatinine ratio micro album in/cr eatin ine ratio Not Available Not Available 01/16/2025 11:09:15 08/22/20 24 08/22/2024 CBC W Auto Diffe renti al panel - Blood white blood cells white blood cells Not Available Not Available 01/16/2025 11:09:15 08/22/20 24 08/22/2024 CBC W Auto Diffe renti al panel - Blood red blood cells red blood cells Not Available Not Available 01/16/2025 11:09:15 08/22/20 24 08/22/2024 CBC W Auto Diffe renti al panel - Blood hemoglobin hemog lobin Not Available Not Available 01/16/2025 11:09:15 08/22/20 24 08/22/2024 CBC W Auto Diffe renti al panel - Blood hematocrit hemat ocrit Not Available Not Available 01/16/2025 11:09:15 08/22/20 24 08/22/2024 CBC W Auto Diffe renti al panel - Blood mean red cell volume mean red cell volum e Not Available Not Available 01/16/2025 11:09:15 08/22/20 24 08/22/2024 CBC W Auto Diffe renti al panel - Blood mean red cell hemoglobin mean red cell hemog lobin Not Available Not Available 01/16/2025 11:09:15 08/22/2008/22/2024 CBC W Auto Diffe renti al panel - Blood mean RBC HGB concentratio n mean RBC HGB jesus ntrat ion Not Available Not Available 01/16/2025 11:09:15 08/22/20 24 08/22/2024 CBC W Auto Diffe renti al panel - Blood red cell distribution width red cell distr ibuti on width Not Available Not Available 01/16/2025 11:09:15 08/22/20 24 08/22/2024 CBC W Auto Diffe renti al panel - Blood platelets plate lets Not Available Not Available 01/16/2025 11:09:15 08/22/20 24 08/22/2024 CBC W Auto Diffe renti al panel - Blood mean platelet volume mean plate let volum e Not Available Not Available 01/16/2025 11:09:15 08/22/20 24 08/22/2024 CBC W Auto Diffe renti al panel - Blood neutrophils neutr ophil s Not Available Not Available 01/16/2025 11:09:15 08/22/20 24 08/22/2024 CBC W Auto Diffe renti al panel - Blood lymphocytes lymph ocyte s Not Available Not Available 01/16/2025 11:09:15 08/22/20 24 08/22/2024 CBC W Auto Diffe renti al panel - Blood monocytes monoc ytes Not Available Not Available 01/16/2025 11:09:15 08/22/20 24 08/22/2024 CBC W Auto Diffe renti al panel - Blood eosinophils eosin ophil s Not Available Not Available 01/16/2025 11:09:15 08/22/20 24 08/22/2024 CBC W Auto Diffe renti al panel - Blood basophils basop hils Not Available Not Available 01/16/2025 11:09:15 08/22/20 24 08/22/2024 CBC W Auto Diffe renti al panel - Blood immature granulocytes immat ure granu locyt es Not Available Not Available 01/16/2025 11:09:15 08/22/20 08/22/2024 CBC W Auto Diffe renti al panel - Blood neutrophils, absolute count neutr ophil s, absol squaxin count Not Available Not Available 01/16/2025 11:09:15 08/22/20 24 08/22/2024 CBC W Auto Diffe renti al panel - Blood lymphocytes, absolute count lymph ocyte s, absol squaxin count Not Available Not Available 01/16/2025 11:09:15 08/22/20 24 08/22/2024 CBC W Auto Diffe renti al panel - Blood monocytes, absolute count monoc ytes, absol squaxin count Not Available Not Available 01/16/2025 11:09:15 08/22/20 24 08/22/2024 CBC W Auto Diffe renti al panel - Blood eosinophils, absolute count eosin ophil s, absol squaxin count Not Available Not Available 01/16/2025 11:09:15 08/22/20 24 08/22/2024 CBC W Auto Diffe renti al panel - Blood basophils, absolute count basop hils, absol squaxin count Not Available Not Available 01/16/2025 11:09:15 08/22/20 24 08/22/2024 CBC W Auto Diffe renti al panel - Blood immature granulocytes ,absolute immat ure granu locyt es,ab solut e Not Available Not Available 01/16/2025 11:09:15 08/22/20 24 08/22/2024 CBC W Auto Diffe renti al panel - Blood nucleated red blood cells nucle ated red blood cells Not Available Not Available 01/16/2025 11:09:15 08/22/20 24 08/22/2024 CBC W Auto Diffe renti al panel - Blood NRBC# NRBC# Not Available Not Availa ble 01/16/2025 11:09:15 01/28/20 24 01/28/2024 DEXA, axial skele ton No observ [facility] ed[facility] [address] [place], [address], 02/01/2024 09:25:44 08/21/20 24 08/22/2024 elect rocar diogr am No observ ation record ed. [facility] In-Office Order Internal Use Only DO Not Attach Compendium DO Not Attach Compendium, Do Not Delete/merge, [id number] 08/22/2024 17:01:51 08/21/20 24 08/21/2024 stephenie hairston am No observ ation record ed. [facility] In-Office Order Internal Use Only DO Not Attach Compendium DO Not Attach Compendium, Do Not Delete/merge, [id number] 08/21/2024 11:56:02 Result Notes None recorded. Problems Name Problem SNOMED Code Status Onset Date Resolution Date Notes Provider Name and Address Organization Details Recorded Time Essential hypertension 32926148 Active 2023 Opal Grant MD Attn: Mert g,[address] [facility], [place], [address], [facility] - [facility] 4 11:34:35 Hyperlipidemia 02536902 Active 2023 Opal Grant MD Attn: Accountlang g,[address] [facility], [place], [address], [facility] - [facility] 4 11:34:36 Anxiety 65461032 Active 2023 Opal Grant MD Attn: Accountin g,[address] [facility], [place], [address], [facility] - [facility]IF 4 11:34:37 Type 2 diabetes mellitus 33731491 Active 2023 Caitlin Carranza MA null, [place] - [facility] 4 11:45:50 Coronary atherosclerosi s 263817599 Active 2023 Opal Grant MD Attn: Mert g,[address] [facility], [place], [address], [facility] - [facility] 4 21:12:41 Problem Notes None recorded. Procedures Surgical History Date Name Laterality Status Provider Name and Address Organization Details Recorded Time Appendectomy completed Jasmin Alvarado MA [place] - [facility] 02/24/2024 10:28:44 Breast Surgery completed DEANNA Stephenson - [place] 02/24/2024 10:28:50 Imaging Results Imaging Date Name Status LastModified by Organization Details LastModified Time 01/28/2024 DEXA, axial skeleton completed [address] [place], [address], 02/01/2024 09:25:44 08/22/2024 electrocardiogram completed [facility] Order Internal Use Only DO Not Attach Compendium DO Not Attach Compendium, Do Not Delete/merge, [id number] 08/22/2024 17:01:51 08/21/2024 electrocardiogram completed [facility] Order Internal Use Only DO Not Attach Compendium DO Not Attach Compendium, Do Not Delete/merge, [id number] 08/21/2024 11:56:02 Procedure Notes None recorded. Medical Equipment None Reported. Allergies Allergen ID Allergen Name Allergen Category Reaction Reaction Severity Criticality Documentation Date Start Date Code Code System Note Provider Name and Address Organization Details Recorded Time 16860129 Product containin g penicilli n (product) medicatio n Not available Not available Not available 02/24/2024 08090 8001 SNOMED Not Available Not Available Not Available 16860130 Cipro medicatio n hives Not available Not available 02/24/202428174 3 RxNorm Not Available Not Available Not Available Medications Name Sig Start Date Stop Date Status Note LastModified by Organization Details LastModified Time losartan 50 mg tablet TAKE 1 TABLET BY MOUTH ONCE DAILY active Not Available Not Available No t Available fluconazo le 100 mg tablet TAKE 1 TABLET BY MOUTH DAILY FOR 5 DAYS. 02/23 completed Not Available Not Available Not Available metformin 500 mg tablet TAKE 1 TABLET BY MOUTH TWICE DAILY active Not Available Not Available No t Available doxycycli ne hyclate 100 mg capsule TAKE 1 CAPSULE BY MOUTH TWICE DAILY FOR 7 DAYS 02/23 completed Not Available Not Available Not Available alprazola m 1 mg tablet TAKE 1 TABLET BY MOUTH ONCE DAILY NEEDED active Not Available Not Available No t Available fluconazo le 150 mg tablet TAKE 1 TABLET BY MOUTH ONCE DAILY 12/28 completed Not Available Not Available Not Available cephalexi n 250 mg capsule TAKE 1 CAPSULE BY MOUTH EVERY 8 HOURS FOR 7 DAYS 12/28 completed Not Available Not Available Not Available hydrocodo ne 5 mg-acetam inophen 325 mg tablet 12/28 completed Not Available Not Available Not Available ondansetr on HCl 8 mg tablet 12/28 completed Not Available Not Available Not Available phenazopy ridine 200 mg tablet TAKE 1 TABLET BY MOUTH 3 TIMES A DAY NEEDED FOR BLADDER SPASMS FOR UP TO 2 DAYS. 02/23 completed Not Available Not Available Not Available metoprolo l succinate ER 100 mg tablet,ex tended release 24 hr take 1 tablet by mouth once daily 2024 active Not Available Not Available Not Avai lable sulfameth oxazole 800 mg-trimet hoprim 160 mg tablet TAKE 1 TABLET BY MOUTH TWICE A DAY 02/23 completed Not Available Not Available Not Available aspirin 81 mg tablet,de layed release Take 1 tablet every day by oral route. active Not Available Not Available No t Available cefadroxi l 500 mg capsule 12/28 completed Not Available Not Available Not Available cyanocoba igro (vit B-12) 1,000 mcg/mL injection solution INJECT 1 ML (1,000 MCG TOTAL) INTO THE MUSCLE INSTRUCT ED EVERY 30 (THIRTY) DAYS 02/23 completed Not Available Not Available Not Available losartan 25 mg tablet TAKE 1 TABLET BY MOUTH ONCE DAILY 12/28 completed Not Available Not Available Not Available methylpre dnisolone 4 mg tablets in a dose pack FOLLOW PACKAGE DIRECTIO NS 02/23 completed Not Available Not Available Not Available rosuvasta tin 20 mg tablet TAKE 1 TABLET BY MOUTH ONCE DAILY active Not Available Not Available No t Available nitrofura ntoin monohydra te/macroc rystals 100 mg capsule TAKE 1 CAPSULE BY MOUTH TWICE DAILY FOR 5 DAYS 12/28 completed Not Available Not Available Not Available Jardiance 10 mg tablet TAKE 1 TABLET BY MOUTH ONCE DAILY active Not Available Not Available No t Available Ozempic 0.25 mg or 0.5 mg (2 mg/1.5 mL) subcutane ous pen injector INJECT 0.25 MG UNDER THE SKIN EVERY 7 DAYS. 02/23 completed Not Available Not Available Not Available Ozempic 1 mg/dose (4 mg/3 mL) subcutane ous pen injector inject 1mg weekly for 4wks then go to 2mg weekly 12/28 completed Not Available Not Available Not Available Ozempic 2 mg/dose (8 mg/3 mL) subcutane ous pen injector INJECT 2 MG SUBCUTAN EOUSLY WEEKLLY 2024 active Not Available Not Available Not Avai lable Mounjaro 7.5 mg/0.5 mL subcutane ous pen injector inject 7.5mg weekly for 4wks then go to 10mg weekly for 4wks 12/28 completed Not Available Not Available Not Available Mounjaro 5 mg/0.5 mL subcutane ous pen injector INJECT 5 MG SUBCUTAN EOUSLY ONCE A WEEK FOR 4 WEEKS THEN GO TO 7.5MG WEEKLY 07/19 completed Changed to Ozempic by Dr Grant. Not Available Not Available Not Available Mounjaro 10 mg/0.5 mL subcutane ous pen injector inject 10mg weekly for 4wks then go up to 12.5mg 07/19 completed Changed to Ozempic by Dr Grant. Not Available Not Available Not Available Ozempic 0.25 mg or 0.5 mg (2 mg/3 mL) subcutane ous pen injector INJECT 0.25 MG SUBCUTAN EOUSLY ONCE EVERY 7 DAYS FOR 4 WEEKS, THEN INCREASE TO 0.5 MG ONCE EVERY 7 DAYS FOR 4 WEEKS THEN 1 MG ONCE EVERY 7 DAYS FOR 4 WEEKS 12/28 completed Not Available Not Available Not Available Vitals Date Recorded Body height Body mass index (BMI) Body weight Heart rate Body temperature Oxygen saturation Oxygen saturation in Arterial blood by Pulse oximetry Systolic blood pressure Diastolic blood pressure Provider Name and Address Organization Details Last Updated DateTime 4 162.56 cm 26.2 kg/m2 09901.4 8 g 87 /min 98 [degF] 99 % 99 % 110 mm[Hg] 74 mm[Hg] Jasmin Alvarado [place] [facility] 4 10:39:26 Date Recorded Body height Body mass index (BMI) Body weight Heart rate Oxygen saturation Oxygen saturation in Arterial blood by Pulse oximetry Systolic blood pressure Diastolic blood pressure Provider Name and Address Organization Details Last Updated DateTime 4 162.56 cm 26.4 kg/m2 19212.2 2 g 73 /min 96 % 96 % 120 mm[Hg] 78 mm[Hg] Ruby Da Silva [place] [facility] 4 10:24:57 Date Recorded Body height Heart rate Oxygen saturation Oxygen saturation in Arterial blood by Pulse oximetry Body mass index (BMI) Body weight Systolic blood pressure Diastolic blood pressure Provider Name and Address Organization Details Last Updated DateTime 5 162.56 cm 99 /min 97 % 97 % 25.7 kg/m2 31933.8 6 g 124 mm[Hg] 70 mm[Hg] Ruby Da Silva [place] [facility] 5 10:48:23 Social History Question Answer Notes LastModified by Organizat ion Details LastModified Time Tobacco Smoking Status Former Smoker DEANNA Stephenson, [place] - [place] 02/24/2024 10:29:47 Do You Have An Advance Directive? Yes Information not available 08/21/2024 What Is Your Level Of Alcohol Consumption? Occasional Information not available 02/24/2024 Are You Blind Or Do You Have Difficulty Seeing? No Information not available 02/24/2024 What Is Your Level Of Caffeine Consumption? Occasional Information not available 08/21/2024 In The 14 Days Before Symptom Onset, Have You Had Close Contact With A Laboratory-confir med COVID-19 While That Case Was Ill? No Information not available 08/21/2024 In The 14 Days Before Symptom Onset, Have You Had Close Contact With A Person Who Is Under Investigation For COVID-19 While That Person Was Ill? No Information not available 08/21/2024 Have You Been To An Area Known To Be High Risk For COVID-19? No Information not available 08/21/2024 Are You Currently Employed? Yes Information not available 08/21/2024 Are You Deaf Or Do You Have Serious Difficulty Hearing? No Information not available 02/24/2024 What Type Of Diet Are You Following? REGULAR Information not available 08/21/2024 Are There Any Guns Present In Your Home? No Information not available 08/21/2024 What Was The Date Of Your Most Recent Tobacco Screening? 08/21/2024 Information not available 08/21/2024 What Is Your Relationship Status? Information not available 02/24/2024 Do You Use Your Seat Belt Or Car Seat Routinely? Yes Information not available 02/24/2024 Do You Have Smoke And Carbon Monoxide Detectors In Your Home? Yes Information not available 08/21/2024 Do You Feel Stressed (tense, Restless, Nervous, Or Anxious, Or Unable To Sleep At Night)? [id number] Information not available 02/24/2024 Do You Use Any Illicit Or Recreational Drugs? No Information not available 08/21/2024 Do You Use Sunscreen Routinely? Yes Information not available 08/21/2024 Sex: Female Functional Status Question Answer Note LastModified by Organization D etails LastModified Time Are you able to care for yourself? Yes Information n ot available 02/24/2024 Mental Status None recorded. Family History Relationship Description Onset Age of this Age Resolved Age Notes LastModified by Organization Details LastModified Time Father Alcohol abuse [email or web address] Not available 2023 10:29:03 Father Malignant tumor of lung [email or web address] Not available 2023 10:29:25 Brother Alcohol abuse [email or web address] Not available 2023 10:29:03 Brother Cerebrovascu lar accident [email or web address] Not available 10:29:11 Sister Cerebrovascu lar accident [email or web address] Not available 10:29:11 Mother Coronary arterioscler osis apaytonma Not available 2023 10:29:16 Medical History Condition Response Coronary Artery Disease Y Other N High Blood Pressure Y Atrial Fibrillation N Kidney or Bladder Problems N Thyroid Problems N GI Problems N Depression N COPD N Blood Clots N Skin Problems N Anemia N Heart Attack ([place]) N Anxiety Disorder Y Diabetes Y Muscle, Joint, or Bone Problems N Seizures/Epilepsy N Acid Reflux (GERD) Y Cancer N Stroke N Asthma N Allergies N High Cholesterol Y Hepatitis N Liver Disease N Headaches N Heart Failure N Osteoporosis N Gynecological HistoryNo gynecological history recorded. Obstetrics History GPAL:G 0 P 0 0 0 0 Immunizations Vaccine Type Date Status Note Provider Nam e and Address Organization Details Recorded Time Pneumococcal conjugate PCV20, polysaccharide [id number] conjugate, adjuvant, PF 5 completed Opal Grant MD Attn: Accounting,[address] [place], [address], [facility] 12/30/2024 17:21:15 Past Encounters Encounter ID Performer Location Encounter Start Date Encounter Closed Date Diagnosis/Indication Diagnosis SNOMED-CT Code Diagnosis ICD10 Code Diagnosis Note [id number] Opal Grant MD [facility] [address] [place] [address] 02/24/2024 10:07:33 02/24/2024 11:43:02 Essential hypertension 56175364 I10 Hyperlipidemia 91675125 E78.5 Anxiety 66624226 F41.9 Type 2 bernice betes mellitus 07361189 E11.9 [id number] Opal Grant MD [facility] [address] [place] [address] 08/21/2024 10:06:25 08/21/2024 11:59:13 Overweight 363146247 E66.3 Essential hypertension 93458087 I10 Hyperlipidemia 34460239 E78.5 Type 2 bernice betes mellitus 04540397 E11.9 Anxiety 39440853 F41.9 Coronary atherosclerosis 382527479 I25.10 [id number] Oapl Grant MD [facility] [address] [place] [address] 12/28/2024 10:00:41 12/28/2024 10:39:34 Essential hypertension 74450862 I10 Type 2 bernice betes mellitus 63068595 E11.9 Body mass index 25-29 - overweight 774974996 Z68.25 Overweight 598193809 E66 .3 Administra tion of pneumococcal vaccine 35783597 Z23 Anxiety 30903147 F41.9 Hyperlipidemia 76552300 E78.5 Coronary atherosclerosis 991180710 I25.10 Health Concerns Section Related Observation LastModified by Organization Detai ls LastModified Time None Recorded Concern Status LastModified by Organization Details LastModified Time None Recorded Advance Directives Directive Y: Payers Encounter Date Sequence Insurance Name Policy Number Policy Bnejamin Covered Member ID Benjamin Member ID Guarantor Name 02/24/2024 1 [place] [id number] Kathie Adrian [id number] Kathie Adrian 08/21/2024 1 [place] [id number] Kathie Adrian [id number] Kathie Adrian 12/28/2024 1 [facility] [id number] Kathie Adrian [id number] Kathie Adrian Notes Date Note Type Note Provider Name and Address Organization Details Recorded Time 02/24/2024 text/html Hypertension no headache or dizziness diabetes no polyphasia polydipsia anxiety stable hyperlipidemia try to follow low-fat diet CAD with stent no chest pain Opal Grant MD Attn: Accounting, [address] [facility] [facility], [place], [address], [facility] 02/26/2024 22:55:36 08/21/2024 text/html Hypertension no chest pain palpitations or headache dyslipidemia does try to follow a low-fat diet diabetes needs blood work done but she has not been having any hypoglycemia does not take her sugars regularly. Sounds like she is going to have breast implants removed as 1 is leaking. Anxiety stable coronary atherosclerosis no angina or anginal equivalents she will be seeing Cardiology in upcoming weeks Opal Grant MD Attn: Accounting, [address] [facility], [place], [address], [facility] 08/21/2024 21:14:43 12/28/2024 text/html CAD no anginal o r anginal equivalents. Hypertension blood pressure is controlled no dizziness. Hyperlipidemia taking her rosuvastatin without any problems diabetes no polyphagia polydipsia or hypoglycemia Opal Grant MD Attn: Accounting, [address] [facility], [place], [address], [facility] 12/30/2024 17:22:41 OBGyn Episode No OBEpisode recorded.
--- OUTSIDE RECORDS SUMMARY | 2025-03-02 08:26 | XMS_ITS | Referral Summary ---
Author Organization [facility] [address] [facility] Address [address] [place] [address] Care Team Providers Care Websphere Process Server Developer Name Role Phone Ruslan Armstrong Primary Care Provider Allergies Active Allergy Reactions Criticality Noted Date Comments Ciprofloxacin Rash Medium 09/27/2019 Penicillins Anaphylaxis High 09/27/2019 Medications cholecalciferol (VITAMIN D-3) 1,000 unit capsule Take 1 capsule by mouth daily Active omeprazole (PriLOSEC) 20 mg capsule Take 20 mg by mouth daily before breakfast Active nitroglycerin (NITROSTAT) 0.4 mg SL tablet PLEASE SEE ATTACHED FOR DETAILED DIRECTIONS 0 Active aspirin 325 mg tablet Take by mouth 7 Active metoprolol XL (TOPROL-XL) 100 mg 24 hr tablet Take 100 mg by mouth daily 9 Active rosuvastatin (CRESTOR) 20 mg tablet Take 20 mg by mouth daily 7 Active empagliflozin (Jardiance) 10 mg tabletIndications: Type 2 diabetes mellitus without complication, without long-term current use of insulin (HCC) Take 1 tablet (10 mg total) by mouth daily 30 tablet 5 1 Active ondansetron ODT (Zofran ODT) 4 mg disintegrating tablet Take 1 tablet (4 mg total) by mouth every 8 (eight) hours 30 tablet 2 1 Active cyanocobalamin (Vitamin B-12) 1,000 mcg/mL injectionIndicatio ns:B12 deficiency Inject 1 mL (1,000 mcg total) into the muscle as instructed every 30 (thirty) days 10 mL 1 2 Active metFORMIN (GLUCOPHAGE) 500 mg tabletIndications: Type 2 diabetes mellitus without complication, without long-term current use of insulin (HCC) TAKE 1 TABLET BY MOUTH TWICE A DAY WITH MEALS 180 tablet 1 2 Active losartan (COZAAR) 50 mg tabletIndications: Primary hypertension TAKE 1 TABLET BY MOUTH EVERY DAY 90 tablet 1 2 Active ALPRAZolam (XANAX) 1 mg tabletIndications: Anxiety TAKE 1 TABLET BY MOUTH DAILY NEEDED FOR ANXIETY 30 tablet 2 Active Active Problems Problem Noted Date Diagnosed Date DM type 2 with diabetic mixed hyperlipidemia (CM S/HCC) 12/23/2018 Assessment & Plan (12/14/2022 4:12 PM PHOTOGRAPHIC RESTORER): Chronic condition Continue Jardiance and Ozempic and metformin. A1c in the office today A1c 5.8 Insomnia 11/06/2016 Pure hypercholesterolemia 02/20/2016 Assessment & Plan (12/14/2022 4:11 PM PHOTOGRAPHIC RESTORER): Chronic condition on rosuvastatin therapy continue follow-up with Cardiology Gastro-esophageal reflux disease without esophag itis 02/20/2016 CAD (coronary artery disease), [place] coronary a rtery 11/17/2013 Assessment & Plan (12/14/2022 4:10 PM PHOTOGRAPHIC RESTORER): Chronic condition managed by Cardiology history of stent placement x2. Anti- platelet therapy with aspirin. Continue metoprolol. HLD (hyperlipidemia) 11/17/2013 Hypertension 06/13/2009 Immunizations Immunization Administration Dates Next Due Influenza, Unspecified 08/29/2014 Pfizer SARS-CoV-2 Monovalent Vaccination (12+ Yrs) PURPLE 12/06/2020,11/18/2020 Tdap 11/29/2011 ZOSTER Recombinant 08/03/2020 Social History Tobacco Use Types Packs/Day Years Used Date Smoking Tobacco: Former Smokeless Tobacco: Never Tobacco Cessation:Counseling Given: Not Answered Alcohol Use Standard Drinks/Week Comments Yes 1 (1 standard drink = 0.6 oz pur e alcohol) social AUDIT-C Answer Date Recorded Q1: How often do you have a drink containing alc ohol? 2-4 times a month 12/14/2022 Q2: How many drinks containi ng alcohol do you have on a typical day when you are drinking? 1 or 2 12/14/2022 Q3: How often do you have si x or more drinks on one occasion? Never 12/14/2022 PHQ-2 Answer Date Recorded PHQ-2 Total Score (If total score is 3 or more points, staff should administer the PHQ-9) 0 12/14/2022 Personal Safety Answer Date Recorded Getting School Help Needed Not on file 11/14 Comments Unknown Sex and Gender Information Value Date Recorded Sex Assigned at Not on file Legal Sex Female 8:33 PM PHOTOGRAPHIC RESTORER Gender Identity Not on file Sexual Orientation Not on file Last Filed Vital Signs Vital Sign Reading Time Taken Comments Blood Pressure 100/68 12/14/2022 3:27 PM PHOTOGRAPHIC RESTORER Pulse 88 12/14/2022 3:27 PM PHOTOGRAPHIC RESTORER Temperature 36.2 C (97.2 F) 12/14/2022 3:27 PM PHOTOGRAPHIC RESTORER Respiratory Rate 21 12/14/2022 3:27 PM PHOTOGRAPHIC RESTORER Oxygen Saturation 96% 12/14/2022 3:27 PM PHOTOGRAPHIC RESTORER Inhaled Oxygen Concentration - - Weight 68.1 kg (150 lb 1.6 oz) 12/14/2022 3:27 P M PHOTOGRAPHIC RESTORER Height 162.6 cm (5' 4 ) 12/14/2022 3:27 PM PHOTOGRAPHIC RESTORER Body Mass Index 25.76 12/14/2022 3:27 PM PHOTOGRAPHIC RESTORER Plan of Treatment Not on file Procedures Procedure Name Priority Date/Time Associated Diagnosis Comments POCT HEMOGLOBIN A1C Routine 12/14/2022 4:39 PM PHOTOGRAPHIC RESTORER DM type 2 with diabetic mixed hyperlipidemia (HCC) HM MAMMOGRAPHY Routine 08/27/2022 HM LIPID PANEL Routine 05/22/2022 ALBUMIN / CREATININE URINE RATIO, RANDOM Routine 05/22/2022 from Last 3 Months or Most Recently Relevant to Health Maintenance Results * POCT hemoglobin A1c (12/14/2022 4:39 PM PHOTOGRAPHIC RESTORER) Hemoglobin A1C, POC 5.8 Blood 12/14/2022 4:39 PM PHOTOGRAPHIC RESTORER Narrative Britt MaddenSmith, [employer]ESS OPERATOR - 12/14/2022 4:39 PM PHOTOGRAPHIC RESTORER Lot [id number] exp 10/12/2024 Ruslan EDWARDS POINT OF CARE TEST ORDERABLES F inal Result * MAMMOGRAPHY (08/27/2022) Historical Provider HEALTH MAINTENANCE Edited Result - Final * ALBUMIN / CREATININE URINE RATIO, RANDOM (05/22/2022) Historical Provider LAB BLOOD BANK TEST ORDER MARTY Final Result EXTERNAL LAB * LIPID PANEL (05/22/2022) SCRIBED Cholesterol, Total 131 SCRIBED Triglycerides 124 SCRIBED HDL 52 SCRIBED LDL 54 Historical Provider HEALTH MAINTENANCE Final Result from Last 3 Months or Most Recently Relevant to Health Maintenance Insurance [employer] [place] SafetyPay [facility] SafetyPay [place] Care Teams Websphere Process Server Developer Relationship Specialty Start Date End Date Ruslan Armstrong PA PCP - General Family Medicine 10/01/22
--- OUTSIDE RECORDS SUMMARY | 2025-03-02 08:26 | XMS_ITS | Clinical Summary ---
Author Organization [facility] Address [address] [place] [address] Care Team Providers Care Catshovel Driver Name Role Phone Tawanna Perry MD Unavailable Luly Gregory MD Unavailable [phone] Clifton Grant MD Primary Care Provider Source Comments [facility],non-owned Affiliates and Associated Physician Practices is amultiple site organization consisting of ambulatory clinics and hospital sitesin [place], [place], [place]. This disclosure is being madepursuant to the Care Everywhere program and may not contain all information available regarding this patient. Last updated 18.[facility] Allergies Active Allergy Reactions Criticality Noted Date Comments Ciprofloxacin Urticaria 06/19/2013 Penicillins 08/10/2008 As child Medications * Be aware that medications may not be up to date on this document. Alwaysverify current medications with the patient. Medication Sig Dispensed Refills Start Date End Date Status losartan (COZAAR) 50 MG tablet Take 1 (one) tablet by mouth once daily Active omeprazole (PRILOSEC) 20 MG capsule Take 1 (one) capsule by mouth daily before breakfast Active metoprolol succinate XL 24hr (TOPROL XL) 100 MG tablet Take 1 (one) tablet by mouth once daily Active aspirin (ASPIRIN) 325 MG tablet Take 1 (one) tablet by mouth once daily Active metFORMIN (GLUCOPHAGE) 500 MG tablet 1 (one) tablet 2 times daily 0 01/14/2017 Active Vitamin D, Cholecalciferol, 1000 UNITS CAPS Take 1 (one) capsule by mouth once daily Active rosuvastatin (CRESTOR) 20 MG tablet at bedtime 06/05/2018 Active ondansetron, disintegrating, (ZOFRAN ODT) 4 MG tablet Take 1 (one) tablet by mouth every 8 hours as needed 11/10/2019 Active ALPRAZolam (XANAX) 1 MG tablet Take 1 (one) tablet by mouth once daily as needed For anxiety. 02/11/2021 Active empagliflozin (Jardiance) 10 MG tablet Jardiance 10 mg tablet 05/06/2022 Ac tive Ozempic, 2 MG/DOSE, 8 MG/3ML pen Inject 2 (two) mg subcutaneously every 7 days 12/23/2023 Active Active Problems Problem Noted Date Diagnosed Date Submucous uterine fibroid 09/11/2018 Overview (09/11/2018): 09/08/18: S/p hysteroscopic partial myomectomy. Stopped due to fluid extravasation and possible ut perforation. disch home on flagyl. Will need to complete procedure. Osteopenia of both thighs 04/27/2017 Overview (01/31/2024): 01/31/2024: T=-1.2, repeat DEXA in 3-5 years to confirm stability. 04/27/2017: T=-1.3, check labs. FRAX neg. Unstable angina pectoris CCS2 11/17/2013 CAD (coronary artery disease), [place] coronary a rtery 11/17/2013 HLD (hyperlipidemia) 11/17/2013 Abnormal nuclear stress test 11/17/2013 S/P coronary artery stent placement BMS x2 RCA 1 01/18/2013 Hypertension 06/13/2009 Immunizations Name Administration Dates Next Due Covid [place] Stem Cell primary monoval ent 12+ yr 0.3mL Purple cap 12/06/2020,11/18/2020 INFLUENZA VACCINE 08/29/2014 TDAP (7yrs+) 11/29/2011 Zoster Hzv Vacc Recombinant Inj Im 08/03/2020 Family History Medical History Relation Name Comments COPD - Chronic Obstructive Pulmonary Disease Brother 1 CAD (Coronary Artery Disease) Brother 2 CVA Brother 3 Lung Cancer Father DE Father Stroke Sister 2 Osteoporosis Neg Hx Relation Name Status Comments Brother 1 Brother 2 Brother 3 Father Mother Sister 1 Alive Sister 2 Alive Social History Tobacco Use Types Packs/Day Years Used Date Smoking Tobacco: Former Cigarettes Q uit: 11/29/1992 Smokeless Tobacco: Never Tobacco Cessation:Counseling Given: Yes Alcohol Use Standard Drinks/Week Comments Yes 3 (1 standard drink = 0.6 oz pur e alcohol) AUDIT-C Answer Date Recorded Q1: How often do you have a drink containing alcohol? 4 or more times a week 07/31/2020 Q2: How many drinks containi ng alcohol do you have on a typical day when you are drinking? 1 or 2 Frequency of Binge Drinking Not on file 12/2019 PHQ-2 Answer Date Recorded Patient Health Questionnaire-2 Score 0 01/07/2024 Sex and Gender Information Value Date Recorded Sex Assigned at Not on file Gender Identity Not on file Sexual Orientation Not on file Last Filed Vital Signs Vital Sign Reading Time Taken Comments Blood Pressure 110/72 01/07/2024 10:19 AM BILINGUAL SALES ASSISTANT Pulse 60 11/10/2018 11:30 AM BILINGUAL SALES ASSISTANT Temperature 36.7 C (98 F) 11/10/2018 11:00 AM BILINGUAL SALES ASSISTANT Respiratory Rate 18 11/10/2018 11:30 AM BILINGUAL SALES ASSISTANT Oxygen Saturation 100% 11/10/2018 11:30 AM BILINGUAL SALES ASSISTANT Inhaled Oxygen Concentration - - Weight 68.1 kg (150 lb 1.6 oz) 01/07/2024 10:19 AM BILINGUAL SALES ASSISTANT Height 162.6 cm (5' 4 ) 01/07/2024 10:19 AM BILINGUAL SALES ASSISTANT Body Mass Index 25.76 01/07/2024 10:19 AM BILINGUAL SALES ASSISTANT Plan of Treatment Health Maintenance Due Date Last Done Comments COLOGUARD (AGES 45-75) - COLON CA SCREENING 1960 COLONOSCOPY - COLON CA SCREENING 1960 CT COLONOGRAPHY - COLON CA SCREENING 1960 FIT - COLON CA SCREENING 1960 FLEX SIG - COLON CA SCREENING 1960 HEPATITIS C SCREENING 05/20/1976 PNEUMOCOCCAL VACCINE 50+ (1 of 1 - PCV) 2008 Respiratory Syncytial Virus (RSV) Vaccine Pt: or over 60 yrs (1 - Risk 60-74 years 1-dose series) 2018 ZOSTER VACCINE (2 of 2) 09/28/2020 08/03/2020 DTAP/TDAP/TD VACCINES (2 - Td or Tdap) 11/29/2021 11/29/2011 MAMMOGRAM 08/27/2023 08/27/2022 (Done Outside Per Report), 10/04/2018, 06/08/2017, Additional history exists SCREENING FOR DIABETES 01/07/2024 8, 09/08/2018, 11/17/2013 COVID-19 VACCINE ( season) 2024 12/06/2020, 11/18/2020 DEPRESSION SCREENING 11/29/2024 01/07/2024, 09/15/20 22 COLON MONITORING 04/29/2025 04/29/2020, 11/29/2011 Colorectal Cancer Screening 04/29/2025 INFLUENZA VACCINE (Season Ended) 2025 09/27/2023, 08/29/2014 BONE DENSITY TESTING Completed 01/28/2024, 04/24/20 17 HEPATITIS B VACCINE Aged Out No longe r eligible based on patient's age to complete this topic HIB VACCINE Aged Out No longer eligi ble based on patient's age to complete this topic HPV VACCINE Aged Out No longer eligi ble based on patient's age to complete this topic MENINGOCOCCAL (Group B) VACCINE SHARED DECISION-MAKING Aged Out No longer eligible based on patient's age to complete this topic MENINGOCOCCAL GROUPS A/C/Y/W VACCINE Aged Out No longer eligible based on patient's age to complete this topic Procedures Procedure Name Priority Date/Time Associated Diagnosis Comments DEXA BONE DENSITY AXIAL SKELETON Routine 01/28/2024 Screening for osteoporosis GLUCOSE - POINT OF CARE Routine 11/10/2018 8:26 AM BILINGUAL SALES ASSISTANT MAMMO BILAT SCREENING Routine 10/04/2018 Breast cancer screening from Last 3 Months or Most Recently Relevant to Health Maintenance Results * DEXA BONE DENSITY AXIAL SKELETON (01/28/2024) Anatomical Region Laterality Modality Other 01/28/2024 Luly Gregory MD DEXA ORDERABLES * (ABNORMAL) GLUCOSE - POINT OF CARE (11/10/2018 8:26 AM BILINGUAL SALES ASSISTANT) Glucose WB/POC 161(H) 70 - 106 mg/dL 11/10/2018 8:34 AM BILINGUAL SALES ASSISTANT [facility] Specimen Type VENOUS BLOOD 11/10/2018 8:34 AM BILINGUAL SALES ASSISTANT [facility] Blood BLOOD SPECIMEN / Unknown 11/10/2018 8:26 AM BILINGUAL SALES ASSISTANT 11/10/2018 8:34 AM BILINGUAL SALES ASSISTANT Narrative [facility] - 11/10/2018 8:34 AM BILINGUAL SALES ASSISTANT NOTIFIED CAREGIVER Luly Gregory MD LAB - POINT OF CARE ORDERABLES [facility] [address] [id number] * MAMMO BILAT SCREENING (10/04/2018) Anatomical Region Laterality Modality Breast Bilateral Mammography Luly Gregory MD MAMMO ORDERABLES from Last 3 Months or Most Recently Relevant to Health Maintenance Advance Directives * FULL RESUSCITATION (Latest Code Status on File) Date Activated Date Inactivated Comments 11/16/2013 11:01 AM 11/17/2013 12:42 PM Care Teams Catshovel Driver Relationship Specialty Start Date End Date [facility] [address] [place] [id number] PCP - General Internal Medicine 01/07/24 Tawanna Perry MD [address] [place] [address] [address] [place] [address] Cardiovascular Disease 10/31/14 Luly Gregory MD [address] [facility] [address] [place] [address] Obstetrics and Gynecology 09/15/22
--- OUTSIDE RECORDS SUMMARY | 2025-03-02 08:26 | XMS_ITS | Clinical Summary ---
Author Organization [place] [id number] [facility] Address [address] [place] [address] Care Team Providers Care Oxygen Therapy Teacher Name Role Phone Ruslan Armstrong Primary Care Provider [phone] Allergies Active Allergy Reactions Criticality Noted Date [...] 12/23/2018 Assessment & Plan (12/14/2022 4:12 PM FEATHER CURLING MACHINE OPERATOR): Chronic condition Continue Jardiance and Ozempic and metformin. A1c in the office today A1c 5.8 Insomnia 11/06/2016 Pure hypercholesterolemia 02/20/2016 Assessment & Plan (12/14/2022 4:11 PM FEATHER CURLING MACHINE OPERATOR): Chronic condition on rosuvastatin therapy continue follow-up with Cardiology Gastro-esophageal reflux disease without esophag itis 02/20/2016 CAD (coronary artery disease), tejon coronary a rtery 11/17/2013 Assessment & Plan (12/14/2022 4:10 PM FEATHER CURLING MACHINE OPERATOR): Chronic condition managed by Cardiology history of stent placement x2. Anti- platelet therapy with aspirin. Continue metoprolol. HLD (hyperlipidemia) 11/17/2013 Hypertension 06/13/2009 Immunizations Immunization Administration Dates Next Due Influenza, Unspecified 08/29/2014 Pfizer SARS-CoV-2 Monovalent Vaccination (12+ Yrs) PURPLE 12/06/2020,11/18/2020 Tdap 11/29/2011 ZOSTER Recombinant 08/03/2020 Surgical History Surgery Date Site/Laterality Comments APPENDECTOMY SECTION Family History Medical History Relation Name Comments COPD Brother 1 Heart failure Brother 1 Dementia Brother 2 Stroke Brother 2 Lung cancer Father hx of smoking Heart disease Maternal Grandfather Heart disease Maternal Grandmother Heart disease Mother No Known Problems Paternal Grandfather No Known Problems Paternal Grandmother Stroke Sister Relation Name Status Comments Brother 1 Brother 2 Father Maternal Grandfather Maternal Grandmother Mother Paternal Grandfather Paternal Grandmother Sister Alive Social History Tobacco Use Types Packs/Day [...] on file Legal Sex Female 8:33 PM FEATHER CURLING MACHINE OPERATOR Gender Identity Not on file Sexual Orientation Not on file Obstetrics History Last Filed Vital Signs Vital Sign Reading Time Taken Comments Blood Pressure 100/68 12/14/2022 3:27 PM FEATHER CURLING MACHINE OPERATOR Pulse 88 12/14/2022 3:27 PM FEATHER CURLING MACHINE OPERATOR Temperature 36.2 C (97.2 F) 12/14/2022 3:27 PM FEATHER CURLING MACHINE OPERATOR Respiratory Rate 21 12/14/2022 3:27 PM FEATHER CURLING MACHINE OPERATOR Oxygen Saturation 96% 12/14/2022 3:27 PM FEATHER CURLING MACHINE OPERATOR Inhaled Oxygen Concentration - - Weight 68.1 kg (150 lb 1.6 oz) 12/14/2022 3:27 P M FEATHER CURLING MACHINE OPERATOR Height 162.6 cm (5' 4 ) 12/14/2022 3:27 PM FEATHER CURLING MACHINE OPERATOR Body Mass Index 25.76 12/14/2022 3:27 PM FEATHER CURLING MACHINE OPERATOR Plan of Treatment Health Maintenance Due Date Last Done Comments Colon Cancer Screening-Colonoscopy 1960 Fall Risk Assessment 1960 Hepatitis C Screening 1960 eGFR 1960 Dilated Eye Exam 1960 Foot Exam 1958 Hepatitis B Screening 1976 Pneumococcal vaccine 65+ (1 of 2 - PCV) 1977 Zoster Vaccine (2 of 2) 09/28/2020 08/03/2020 DTaP/Tdap/Td Vaccine (2 - Td or Tdap) 11/29/2021 11/29/2011 Albumin Creatinine Ratio, Urine 05/22/2023 2 Lipid Panel 05/22/2023 05/22/2022 Hemoglobin A1C 06/13/2023 12/14/2022, 05/22/2022 Well Visit 65+ 08/13/2023 08/13/2022, 07/30, 11/10/2019 Breast Cancer Screening-Mammogram 08/27/2023 08/27/2022, 08/06/2021, 10/04/2018, Additional history exists Depression Screening 12/14/2023 12/14/2022, 08/14/20 21 Covid-19 Vaccine ( - 2023-2 5 season) 2024 09/26/2021, 12/06/2020, 11/18/2020 Influenza Vaccine (#1) 2024 3, 08/29/2022, 08/29/2014 Osteoporosis Screening-Bone Density Scan 01/27/2026 01/28/2024, 01/28/2024 Procedures Procedure Name Priority Date/Time Associated Diagnosis Comments POCT HEMOGLOBIN A1C Routine 12/14/2022 4 :39 PM FEATHER CURLING MACHINE OPERATOR DM type 2 with diabetic mixed hyperlipidemia (HCC) MAMMOGRAPHY Routine 08/27/2022 LIPID PANEL Routine 05/22/2022 ALBUMIN / CREATININE URINE RATIO, RANDOM Routine 05/22/2022 from Last 3 Months or Most Recently Relevant to Health Maintenance Results * POCT hemoglobin A1c (12/14/2022 4:39 PM FEATHER CURLING MACHINE OPERATOR) Hemoglobin A1C, POC 5.8 Blood 12/14/2022 4:39 PM FEATHER CURLING MACHINE OPERATOR Narrative Britt Madden LPN - 12/14/2022 4:39 PM FEATHER CURLING MACHINE OPERATOR Lot [id number] exp 10/12/2024 Ruslan EDWARDS POINT OF CARE TEST ORDERABLES F inal Result * MAMMOGRAPHY (08/27/2022) Result [facility] Historical Provider HEALTH MAINTENANCE Edited Result - Final * ALBUMIN / CREATININE URINE RATIO, RANDOM (05/22/2022) Historical Provider LAB BLOOD BANK TEST ORDER MARTY Final Result EXTERNAL LAB * LIPID PANEL (05/22/2022) SCRIBED Cholesterol, Total 131 SCRIBED Triglycerides 124 SCRIBED HDL 52 SCRIBED LDL 54 Historical Provider HEALTH MAINTENANCE Final Result from Last 3 Months or Most Recently Relevant to Health Maintenance Insurance POI [place] [facility]I [facility] Care Teams Oxygen Therapy Teacher Relationship Specialty Start Date End Date Ruslan Armstrong PA PCP - General Family Medicine 10/01/22
== END 2025-03-02 08:14 | disposition home or self-care (01) ==
LOC: ANHIMG 08:19
PROVIDERS: PCP Internal Medicine; Visit Provider Internal Medicine
DX: Z12.31 Encounter for screening mammogram for malignant neoplasm of breast (principal)
CPT/HCPCS: 77063; 77067